=== PATIENT | female | born 1975 | race Caucasian/White ===

== ENCOUNTER 2017-04-24 15:32 | Inpatient (IN) | payer OTHER ==
[2017-04-24 16:34] LABS: Anisocytosis Slight; Basophils % (A) 0 %; Eosinophils # (A) 0.1 k/uL (0-0.7); Eosinophils % (A) 1 %; HCT 23.7 % (34.0-46.0); Hypochromasia Marked; Lymphocytes # (A) 2.1 k/uL (1.0-4.8); Lymphocytes % (A) 28 %; MCH 16.4 pg (25.0-35.0); MCV 65.7 fL (80.0-100.0); Mean Platelet Volume 6.9; Microcytosis Marked; Monocytes # (A) 0.5 k/uL (0-1.0); Monocytes % (A) 6 %; Neutrophils # (A) 4.6 k/uL (1.3-7.7); Neutrophils % (A) 62 %; Platelet Count 568 k/uL (150-450); Poikilocytosis Slight; RBC 3.61 m/uL (3.80-5.40); RDW 18.4 % (11.5-15.5); WBC 7.5 k/uL (3.8-10.6)
[2017-04-24 16:39] LABS: HGB 5.9 gm/dL (11.4-16.0)
[2017-04-24 16:41] LABS: ALT 20 U/L (9-52); AST 18 U/L (14-36); Albumin 3.6 g/dL (3.5-5.0); Alkaline Phosphatase 92 U/L (38-126); Anion Gap 10 mmol/L; Blood Urea Nitrogen 14 mg/dL (7-17); Calcium 9.2 mg/dL (8.4-10.2); Carbon Dioxide 28 mmol/L (22-30); Chloride 99 mmol/L (98-107); Glucose 92 mg/dL (74-99); Potassium 4.1 mmol/L (3.5-5.1); Sodium 137 mmol/L (137-145); Total Bilirubin <0.1 mg/dL (0.2-1.3); Total Protein 6.4 g/dL (6.3-8.2)
[2017-04-24 16:50] LABS: Ovalocytes Present; Polychromasia Present; Stomatocytes Present
--- NOTE | 2017-04-24 16:52 | ED ---
Extremity Problem HPI - General Chief complaint: Extremity Problem,Nontraumatic Stated complaint: Ankle/foot swelling Time Seen by Provider: 04/24/17 15:37 Source: patient Mode of arrival: ambulatory Limitations: physical limitation - History of Present Illness Initial comments: 41-year-old female patient presents to the emergency department today for evaluation of swelling to her ankles and feet. Patient states that swelling started a couple of days ago. She states that this seems to be worsening as the days go on. States she has tried soaking in absent salts and keeping them elevated but they don't seem to be improving at all. She states it feel tight. She denies any actual pain, redness, fevers, or chills. Denies any calf pain. She states that she has not had any follow-up with a primary care physician for the last 7 years. States that she frequently gets headaches, feels fatigued, does not sleep at night. She denies any dyspnea with lying flat or with physical activity. She denies any cough or congestion. Denies any recent travel. Patient denies any recent rash, chest pain, abdominal pain, nausea, vomiting, diarrhea, constipation, back pain, numbness, tingling, dizziness, weakness, hematuria, dysuria, urinary urgency, urinary frequency, headache, visual changes, or any other complaints. - Related Data Home Medications Medication Instructions Recorded Confirmed Fluticasone Nasal [place] [Flonase 1 spray EA NOSTRIL DAILY 04/24/17 04/24/17 Nasal [place]] Ibuprofen [Motrin Ib] 800 mg PO Q4H PRN 04/24/17 04/24/17 Sodium Chloride [Saline Nasal 1 spray EA NOSTRIL QID PRN 04/24/17 04/24/17 [place]] Allergies Allergy/AdvReac Type Severity Reaction Status Date / Time No Known Allergies Allergy Verified 04/24/17 16:17 Review of Systems ROS Statement: Those systems with pertinent positive or pertinent negative responses have been documented in the HPI. ROS Other: All systems not noted in ROS Statement are negative. Past Medical History Past Medical History: No Reported History History of Any Multi-Drug Resistant Organisms: None Reported Past Surgical History: Section Additional Past Surgical History / Comment(s): HEMROIDECTOMY Past Psychological History: No Psychological Hx Reported Smoking Status: Current every day smoker Past Alcohol Use History: None Reported Past Drug Use History: None Reported General Exam Limitations: physical limitation General appearance: alert, in no apparent distress, other (Is a well-developed, well-nourished adult female patient in no acute distress. Vital signs upon presentation are temperature 98.7F, pulse 120, respirations 18, blood pressure 177/95, pulse ox 100% on room air.) Eye exam: Present: normal appearance, PERRL, EOMI, other (Pale conjunctiva). Absent: scleral icterus, conjunctival injection, periorbital swelling ENT exam: Present: normal exam, normal oropharynx, mucous membranes moist, TM's normal bilaterally Neck exam: Present: normal inspection. Absent: tenderness, meningismus, lymphadenopathy Respiratory exam: Present: normal lung sounds bilaterally. Absent: respiratory distress, wheezes, rales, rhonchi, stridor Cardiovascular Exam: Present: normal rhythm, tachycardia, normal heart sounds. Absent: systolic murmur, diastolic murmur, rubs, gallop, clicks GI/Abdominal exam: Present: soft, normal bowel sounds. Absent: distended, tenderness, guarding, rebound, rigid Neurological exam: Present: alert, oriented X3, CN II-XII intact Psychiatric exam: Present: normal affect, normal mood Skin exam: Present: warm, dry, intact, normal color. Absent: rash Course Vital Signs 04/24/17 04/24/17 04/24/17 15:39 16:16 17:18 Temperature 98.7 F 98.9 F Pulse Rate 120 H 111 H Respiratory 18 18 18 Rate Blood Pressure 177/95 162/87 O2 Sat by Pulse 100 98 Oximetry 04/24/17 04/24/17 04/24/17 19:46 20:00 20:10 Temperature 98.4 F 98.8 F 98.5 F Pulse Rate 114 H 106 H 100 Respiratory 20 18 20 Rate Blood Pressure 177/100 156/103 171/104 O2 Sat by Pulse 99 99 100 Oximetry 04/24/17 04/24/17 04/24/17 20:40 21:20 21:22 Temperature 98.6 F 98.7 F 98.5 F Pulse Rate 114 H 107 H 106 H Respiratory 20 20 18 Rate Blood Pressure 166/106 160/102 158/100 O2 Sat by Pulse 99 98 99 Oximetry - Reevaluation(s) Reevaluation #1: 04/24/17 16:51 Patient's hemoglobin did come back at 5.9. Upon further questioning patient reports having prolonged frequent periods for the last several years. Patient states she does not follow with a machine preservative filler or primary care physician at this time and has not for the last 7 years. She is with one twin gestation. Both deliveries were via caesarean section. She has no history of abnormal pap, but again has not had any routine care in 7 years. She does report feeling fatigued constantly. We will repeat the CBC to confirm number. 04/24/17 18:04 Medical Decision Making - Medical Decision Making 41-year-old male patient presented to the emergency department today for complaints of foot and ankle swelling 4 days. Physical examination did reveal 2+ pitting edema to the bilateral lower extremities. We did perform labs which showed patient had a hemoglobin of 5.9 with did repeat this and got a level of 5.7. Platelet count was 585. After further questioning patient did report having heavy vaginal bleeding for the last several years along with prolonged menstrual cycles. HCG is negative. Urinalysis is negative. BNP was 354. Patient has been hypertensive while here in the department. We did transfuse patient with 1 unit of packed red blood cells. Dr. Lyons TAPE CUTTING MACHINE OPERATOR did come down to evaluate the patient and did not find any vaginal bleeding presently. He will follow-up with the patient outpatient. We did admit to medicine Dr. Dalton with sound physician's is excepting. We will repeat CBCs and monitor patient. - Lab Data Result diagrams: 04/24/17 17:00 04/24/17 16:10 Lab Results 04/24/17 04/24/17 04/24/17 Range/Units 16:10 16:10 16:10 WBC 7.5 (3.8-10.6) k/uL RBC 3.61 L (3.80-5.40) m/uL Hgb 5.9 L* (11.4-16.0) gm/dL Hct 23.7 L (34.0-46.0) % MCV 65.7 L (80.0-100.0) fL MCH 16.4 L (25.0-35.0) pg MCHC 25.0 L (31.0-37.0) g/dL RDW 18.4 H (11.5-15.5) % Plt Count 568 H (150-450) k/uL Neutrophils % 62 % Lymphocytes % 28 % Monocytes % 6 % Eosinophils % 1 % Basophils % 0 % Neutrophils # 4.6 (1.3-7.7) k/uL Lymphocytes # 2.1 (1.0-4.8) k/uL Monocytes # 0.5 (0-1.0) k/uL Eosinophils # 0.1 (0-0.7) k/uL Basophils # 0.0 (0-0.2) k/uL Polychromasia Present Hypochromasia Marked Poikilocytosis Slight Anisocytosis Slight Microcytosis Marked Ovalocytes Present Stomatocytes Present PT (9.0-12.0) sec INR (<1.2) APTT (22.0-30.0) sec Sodium 137 (137-145) mmol/L Potassium 4.1 (3.5-5.1) mmol/L Chloride 99 (98-107) mmol/L Carbon Dioxide 28 (22-30) mmol/L Anion Gap 10 mmol/L BUN 14 (7-17) mg/dL Creatinine 0.50 L (0.52-1.04) mg/dL Est GFR (MDRD) Af Amer >60 (>60 ml/min/1.73 sqM) Est GFR (MDRD) Non-Af >60 (>60 ml/min/1.73 sqM) Glucose 92 (74-99) mg/dL Calcium 9.2 (8.4-10.2) mg/dL Total Bilirubin <0.1 L (0.2-1.3) mg/dL AST 18 (14-36) U/L ALT 20 (9-52) U/L Alkaline Phosphatase 92 (38-126) U/L NT-Pro-B Natriuret Pep 354 pg/mL Total Protein 6.4 (6.3-8.2) g/dL Albumin 3.6 (3.5-5.0) g/dL Urine Color Urine Appearance (Clear) Urine pH (5.0-8.0) Ur Specific [place] (1.001-1.035) Urine Protein (Negative) Urine Glucose (UA) (Negative) Urine Ketones (Negative) Urine Blood (Negative) Urine Nitrite (Negative) Urine Bilirubin (Negative) Urine Urobilinogen (<2.0) mg/dL Ur Leukocyte Esterase (Negative) Urine HCG, Qual (Not Detectd) Blood Type Blood Type Recheck Antibody Screen Crossmatch Spec Expiration Date 04/24/17 04/24/17 04/24/17 Range/Units 16:10 17:00 17:00 WBC 8.1 (3.8-10.6) k/uL RBC 3.40 L (3.80-5.40) m/uL Hgb 5.7 L* (11.4-16.0) gm/dL Hct 22.4 L (34.0-46.0) % MCV 65.8 L (80.0-100.0) fL MCH 16.7 L (25.0-35.0) pg MCHC 25.4 L (31.0-37.0) g/dL RDW 18.4 H (11.5-15.5) % Plt Count 585 H (150-450) k/uL Neutrophils % 61 % Lymphocytes % 28 % Monocytes % 6 % Eosinophils % 1 % Basophils % 1 % Neutrophils # 4.9 (1.3-7.7) k/uL Lymphocytes # 2.3 (1.0-4.8) k/uL Monocytes # 0.5 (0-1.0) k/uL Eosinophils # 0.1 (0-0.7) k/uL Basophils # 0.0 (0-0.2) k/uL Polychromasia Hypochromasia Marked Poikilocytosis Slight Anisocytosis Slight Microcytosis Marked Ovalocytes Stomatocytes PT 9.6 (9.0-12.0) sec INR 1.0 (<1.2) APTT 22.5 (22.0-30.0) sec Sodium (137-145) mmol/L Potassium (3.5-5.1) mmol/L Chloride (98-107) mmol/L Carbon Dioxide (22-30) mmol/L Anion Gap mmol/L BUN (7-17) mg/dL Creatinine (0.52-1.04) mg/dL Est GFR (MDRD) Af Amer (>60 ml/min/1.73 sqM) Est GFR (MDRD) Non-Af (>60 ml/min/1.73 sqM) Glucose (74-99) mg/dL Calcium (8.4-10.2) mg/dL Total Bilirubin (0.2-1.3) mg/dL AST (14-36) U/L ALT (9-52) U/L Alkaline Phosphatase (38-126) U/L NT-Pro-B Natriuret Pep pg/mL Total Protein (6.3-8.2) g/dL Albumin (3.5-5.0) g/dL Urine Color Urine Appearance (Clear) Urine pH (5.0-8.0) Ur Specific [place] (1.001-1.035) Urine Protein (Negative) Urine Glucose (UA) (Negative) Urine Ketones (Negative) Urine Blood (Negative) Urine Nitrite (Negative) Urine Bilirubin (Negative) Urine Urobilinogen (<2.0) mg/dL Ur Leukocyte Esterase (Negative) Urine HCG, Qual (Not Detectd) Blood Type O Positive Blood Type Recheck No Antibody Screen NEGATIVE Crossmatch See Detail Spec Expiration Date 04/27/2017 - 229904/24/17 04/24/17 Range/Units 18:30 18:30 WBC (3.8-10.6) k/uL RBC (3.80-5.40) m/uL Hgb (11.4-16.0) gm/dL Hct (34.0-46.0) % MCV (80.0-100.0) fL MCH (25.0-35.0) pg MCHC (31.0-37.0) g/dL RDW (11.5-15.5) % Plt Count (150-450) k/uL Neutrophils % % Lymphocytes % % Monocytes % % Eosinophils % % Basophils % % Neutrophils # (1.3-7.7) k/uL Lymphocytes # (1.0-4.8) k/uL Monocytes # (0-1.0) k/uL Eosinophils # (0-0.7) k/uL Basophils # (0-0.2) k/uL Polychromasia Hypochromasia Poikilocytosis Anisocytosis Microcytosis Ovalocytes Stomatocytes PT (9.0-12.0) sec INR (<1.2) APTT (22.0-30.0) sec Sodium (137-145) mmol/L Potassium (3.5-5.1) mmol/L Chloride (98-107) mmol/L Carbon Dioxide (22-30) mmol/L Anion Gap mmol/L BUN (7-17) mg/dL Creatinine (0.52-1.04) mg/dL Est GFR (MDRD) Af Amer (>60 ml/min/1.73 sqM) Est GFR (MDRD) Non-Af (>60 ml/min/1.73 sqM) Glucose (74-99) mg/dL Calcium (8.4-10.2) mg/dL Total Bilirubin (0.2-1.3) mg/dL AST (14-36) U/L ALT (9-52) U/L Alkaline Phosphatase (38-126) U/L NT-Pro-B Natriuret Pep pg/mL Total Protein (6.3-8.2) g/dL Albumin (3.5-5.0) g/dL Urine Color Yellow Urine Appearance Clear (Clear) Urine pH 6.0 (5.0-8.0) Ur Specific [place] 1.018 (1.001-1.035) Urine Protein Negative (Negative) Urine Glucose (UA) Negative (Negative) Urine Ketones Negative (Negative) Urine Blood Negative (Negative) Urine Nitrite Negative (Negative) Urine Bilirubin Negative (Negative) Urine Urobilinogen <2.0 (<2.0) mg/dL Ur Leukocyte Esterase Negative (Negative) Urine HCG, Qual Not Detected (Not Detectd) Blood Type Blood Type Recheck Antibody Screen Crossmatch Spec Expiration Date - EKG Data -: EKG Interpreted by [place] EKG Comments: EKG obtained at 1612 shows sinus tachycardia possible left atrial enlargement, incomplete right bundle branch block, possible anterior infarct. Ventricular rate is 109, W[place] interval 136, QRS duration 100, QT 362, QTc 487. - Radiology Data Radiology results: report reviewed, image reviewed Transvaginal ultrasound of the pelvis was obtained due to heavy menses. Impression by Dr. Woodward shows a 1.8 cm somewhat exophytic complex cyst on the uterine fundus of uncertain significance. Normal endometrium. No adnexal mass. No free fluid. No evidence of ovarian torsion. Disposition Clinical Impression: Anemia Disposition: ADMITTED IP TO THIS [facility] Condition: Serious Referrals: None,Stated [Primary Care Provider] - 1-2 days Decision to Admit Reason: Admit from EC Decision Date: 04/24/17 Decision Time: 21:24
[2017-04-24 17:26] LABS: Anisocytosis Slight; Basophils % (A) 1 %; Eosinophils # (A) 0.1 k/uL (0-0.7); Eosinophils % (A) 1 %; HCT 22.4 % (34.0-46.0); Hypochromasia Marked; Lymphocytes # (A) 2.3 k/uL (1.0-4.8); Lymphocytes % (A) 28 %; MCH 16.7 pg (25.0-35.0); MCHC 25.4 g/dL (31.0-37.0); MCV 65.8 fL (80.0-100.0); Mean Platelet Volume 6.6; Microcytosis Marked; Monocytes # (A) 0.5 k/uL (0-1.0); Monocytes % (A) 6 %; Neutrophils # (A) 4.9 k/uL (1.3-7.7); Neutrophils % (A) 61 %; Platelet Count 585 k/uL (150-450); Poikilocytosis Slight; RDW 18.4 % (11.5-15.5); WBC 8.1 k/uL (3.8-10.6)
[2017-04-24 17:31] LABS: HGB 5.7 gm/dL (11.4-16.0)
[2017-04-24 18:24] LABS: Partial Thromboplastin Time 22.5 sec (22.0-30.0); Prothrombin Time 9.6 sec (9.0-12.0)
[2017-04-24 18:43] LABS: Appearance,Urine Clear (Clear); Bilirubin,Urine Negative (Negative); Blood,Urine Negative (Negative); Color,Urine Yellow; Glucose,Urine (UA) Negative (Negative); Ketones,Urine Negative (Negative); Leukocyte Esterase,Urine Negative (Negative); Protein,Urine Negative (Negative); Specific Gravity,Urine 1.018 (1.001-1.035); Urobilinogen,Urine <2.0 mg/dL (<2.0)
--- NOTE | 2017-04-24 21:05 | US ---
EXAMINATION TYPE: US transvaginal DATE OF EXAM: 04/24/2017 COMPARISON: NONE CLINICAL HISTORY: Pain. Heavy menses TECHNIQUE: Transvaginal (TV). EXAM MEASUREMENTS: Uterus: 7.1 x 5.3 x 3.2 cm Right Ovary: 3.2 x 1.9 x 2.4 cm Left Ovary: 3.0 x 1.8 x 2.4 cm 1. Uterus: Anteverted Heterogenous with a hypoechoic area seen measuring 1.8 x 1.3 x 1.8cm. Naboth daysi cyst. 2. Endometrium: Boarders are ill defined. 3. Right Ovary: wnl 4. Left Ovary: wnl Spectral, color and waveform doppler imaging shows good arterial and venous flow within the ovaries ; there is no evidence for ovarian torsion. 5. Bilateral Adnexa: wnl 6. Posterior cul-de-sac: wnl Hypoechoic area seen in uterus measuring 1.8 x 1.3 x 1.8cm. IMPRESSION: There is a 1.8 cm somewhat exophytic complex cyst on the uterine fundus of uncertain sign ificance. Normal endometrium. No adnexal mass. No free fluid. No evidence of ovarian torsion.
[2017-04-24] MEDS ORDERED: NALOXONE 0.4 MG/ML 1 ML VIAL IV PRN (21:14)
--- NOTE | 2017-04-24 21:20 | P.OBCN ---
History of Present Illness Consult date: 04/24/17 Requesting physician: Jay Jones Reason for consult: menorrhagia Chief complaint: History of heavy vaginal bleeding History of present illness: Rocío is a 41-year-old who has for the past approximately 6 years had very heavy vaginal bleeding. She reports the bleeding began is extremely heavy shortly after having her twins which was approximately 6 years ago. At that same time she had a tubal ligation. She reports that she passes very large blood clots and the last 2-3 years has bled 12-14 days each cycle. She is not sought any medical care and has not seen a physician in more than 6 years. In the emergency room she is laying quietly in bed receiving a blood transfusion because her hemoglobin was 5.6. She and I had a lengthy discussion on need for further workup and evaluation and most likely needing some type of evaluation of the lining of her uterus. I did do a Pap smear and pelvic exam in the emergency room however. We'll plan to check FSH, LH, prolactin, and TSH with standard menorrhagia bloodwork. In discussing her symptoms with her she relates that there is been no other significant changes to her health and she takes no other medications. Her past medical history generally is unremarkable. Past surgical history she had to 2 sections as well as a neck surgery. ALLERGIES none. Social history assume for tobacco abuse Loprox one pack per day. She denies alcohol or illicit drug use at this time. Family history is noncontributory other than she states that all of the female members her family have had hysterectomies by age 40. On physical exam currently her vital signs show hypertension with blood pressure 171/104. She is receiving her unit of blood from the emergency room. She is however afebrile Heart essentially regular, lungs are clear. Abdomen is soft and nontender and no uterus is palpable above the pubic symphysis. Pelvic exam is completed and Pap smear was done. She has an anteverted anteflexed uterus no masses are noted in the adnexa and I believe I could feel one fibroid anteriorly on the uterus. Physically she appears older than her stated age and is underweight. Assessment history of menorrhagia/menometrorrhagia with no active bleeding tonight. Plan your medical management with expectation to see her in an outpatient setting for at the very least endometrial biopsy and to discuss some type of alternative means to control her bleeding i.e. Mirena IUD versus potentially D& C with hysteroscopy and NovaSure ablation versus more aggressive measures depending on how her symptoms progress. I did have a lengthy discussion with her that this is not safe to continue to have this heavy bleeding and that ultimately something would absolutely have to be done and she would need follow- up for this. She is again not actively bleeding and therefore no immediate treatments need to be offered. Past Medical History Past Medical History: No Reported History History of Any Multi-Drug Resistant Organisms: None Reported Past Surgical History: Section Additional Past Surgical History / Comment(s): HEMROIDECTOMY Past Psychological History: No Psychological Hx Reported Smoking Status: Current every day smoker Past Alcohol Use History: None Reported Past Drug Use History: None Reported Medications and Allergies Home Medications Medication Instructions Recorded Confirmed Type Fluticasone Nasal [place] [Flonase 1 spray EA NOSTRIL DAILY 04/24/17 04/24/17 History Nasal [place]] Ibuprofen [Motrin Ib] 800 mg PO Q4H PRN 04/24/17 04/24/17 History Sodium Chloride [Saline Nasal 1 spray EA NOSTRIL QID PRN 04/24/17 04/24/17 History [place]] Allergies Allergy/AdvReac Type Severity Reaction Status Date / Time No Known Allergies Allergy Verified 04/24/17 16:17 Exam Osteopathic Statement: *. No significant issues noted on an osteopathic structural exam other than those noted in the History and Physical/Consult. - Vital Signs Vital signs: Vital Signs Temp Pulse Resp BP Pulse Ox 04/24/17 20:10 98.5 F 100 20 171/104 100 04/24/17 20:00 98.8 F 106 H 18 156/103 99 04/24/17 19:46 98.4 F 114 H 20 177/100 99 04/24/17 17:18 98.9 F 111 H 18 162/87 98 04/24/17 16:16 18 04/24/17 15:39 98.7 F 120 H 18 177/95 100 Intake and Output 04/24/17 04/24/17 04/24/17 06:59 14:59 22:59 Intake Total 0 Balance 0 Intake: Blood Product 0 Rc As-3 Unit 0 [id number] Other: Weight 58.06 kg Patient Weight 04/25/17 06:59 Weight 58.06 kg Results Result Diagrams: 04/24/17 17:00 04/24/17 16:10 Abnormal Lab Results - Last 24 Hours (Table) 04/24/17 04/24/17 04/24/17 Range/Units 16:10 16:10 17:00 RBC 3.61 L 3.40 L (3.80-5.40) m/uL Hgb 5.9 L* 5.7 L* (11.4-16.0) gm/dL Hct 23.7 L 22.4 L (34.0-46.0) % MCV 65.7 L 65.8 L (80.0-100.0) fL MCH 16.4 L 16.7 L (25.0-35.0) pg MCHC 25.0 L 25.4 L (31.0-37.0) g/dL RDW 18.4 H 18.4 H (11.5-15.5) % Plt Count 568 H 585 H (150-450) k/uL Creatinine 0.50 L (0.52-1.04) mg/dL Total Bilirubin <0.1 L (0.2-1.3) mg/dL Crossmatch 04/24/17 Range/Units 17:00 RBC (3.80-5.40) m/uL Hgb (11.4-16.0) gm/dL Hct (34.0-46.0) % MCV (80.0-100.0) fL MCH (25.0-35.0) pg MCHC (31.0-37.0) g/dL RDW (11.5-15.5) % Plt Count (150-450) k/uL Creatinine (0.52-1.04) mg/dL Total Bilirubin (0.2-1.3) mg/dL Crossmatch See Detail
[2017-04-24] MEDS: SODIUM CHLORIDE 0.9% 1,000 ML IV SCH (23:24)
[2017-04-25 01:02] LABS: Anisocytosis Slight; Basophils % (A) 0 %; Eosinophils # (A) 0.1 k/uL (0-0.7); Eosinophils % (A) 1 %; HCT 25.5 % (34.0-46.0); Hypochromasia Marked; Lymphocytes # (A) 1.7 k/uL (1.0-4.8); Lymphocytes % (A) 19 %; MCH 17.6 pg (25.0-35.0); MCHC 27.2 g/dL (31.0-37.0); MCV 64.8 fL (80.0-100.0); Mean Platelet Volume 6.6; Microcytosis Marked; Monocytes # (A) 0.6 k/uL (0-1.0); Monocytes % (A) 6 %; Neutrophils # (A) 6.7 k/uL (1.3-7.7); Neutrophils % (A) 72 %; Platelet Count 550 k/uL (150-450); Poikilocytosis Moderate; RBC 3.93 m/uL (3.80-5.40); RDW 19.8 % (11.5-15.5); WBC 9.3 k/uL (3.8-10.6)
[2017-04-25 01:11] LABS: HGB 6.9 gm/dL (11.4-16.0)
[2017-04-25 01:55] LABS: ALT 28 U/L (9-52); AST 22 U/L (14-36); Albumin 3.8 g/dL (3.5-5.0); Alkaline Phosphatase 89 U/L (38-126); Anion Gap 10 mmol/L; Blood Urea Nitrogen 13 mg/dL (7-17); Calcium 9.3 mg/dL (8.4-10.2); Carbon Dioxide 28 mmol/L (22-30); Chloride 98 mmol/L (98-107); Glucose 101 mg/dL (74-99); Potassium 4.2 mmol/L (3.5-5.1); Sodium 136 mmol/L (137-145); Total Bilirubin 0.4 mg/dL (0.2-1.3); Total Protein 6.7 g/dL (6.3-8.2)
--- NOTE | 2017-04-25 01:59 | P.HPIM ---
History of Present Illness H&P Date: 04/24/17 Chief Complaint: Bilateral leg swelling 41-year-old female with no significant past medical history patient does not have a PCP and does not take any medications at home. She presented to the hospital due to swelling of bilateral feet up to the legs of couple day duration. This has never happened before and started all of a sudden however she denies any rashes, injury, or any similar events in the past, patient denies any pain in her legs. Patient works in the [employer]. Denies any orthopnea , paroxysmal maternal dyspnea, exertional dyspnea,, chest pain, or trouble breathing. Patient denies any fevers or chills, nausea or vomiting, dizziness or lightheadedness, syncope or near syncope, tachycardia. Patient does indicate that she has heavy vaginal bleeding since the delivery of her son 6 years ago since then she had a very irregular heavy bleed lasting 12- 14 days at times. She reported some family history of uterine disorders. However patient currently laying comfortable in bed not in any acute distress very pleasant, she has received the event of blood in the ER and admitted for further management. Patient was also evaluated by gynecology in the ED, transvaginal ultrasound performed which was unremarkable. Further workup was suggested to be performed as an outpatient Review of Systems Constitutional: Patient denies fever, denies chills, denies night sweating, denies significant weight changes Eyes: Patient denies visual changes, denies eye pain ENT: Patient denies ear pain, denies rhinorrhea, denies sore throat Cardiovascular: Patient denies chest pain, denies exertional dyspnea, denies orthopnea, denies paroxysmal nocturnal dyspnea Respiratory:Patient denies cough, denies wheezing, denies shortness of breath Gastrointestinal: Patient denies diarrhea, denies constipation, denies nausea , denies vomiting, denies abdominal pain Genitourinary: Patient denies dysuria, denies hematuria, denies changes in urinary habits, denies genital lesions, patient admits to heavy vaginal bleeding as discussed in HPI Musculoskeletal: Patient denies muscle pain, denies joint pain Psychiatric: Patient denies changes in mood or memory, denies suicidal ideation, denies anxiety Endocrine: Patient denies heat intolerance, denies cold intolerance, denies excessive thirst, denies polyuria Neurological: Patient denies focal neurologic deficits, denies weakness, denies numbness, denies tingling Hem/Lymphatic: Patient denies bleeding tendency, denies bruising, denies swollen lymph glands Allergic/Immun: Patient denies recent allergic reactions Skin: Patient denies rashes, denies pruritis, denies ulcers Past Medical History Past Medical History: No Reported History Additional Past Medical History / Comment(s): Teeth removed in October 2016. Continues to have gum pain and abscesses. History of Any Multi-Drug Resistant Organisms: None Reported Past Surgical History: Section Additional Past Surgical History / Comment(s): HEMROIDECTOMY Past Anesthesia/Blood Transfusion Reactions: No Reported Reaction Smoking Status: Current every day smoker - Past Family History Mother Family Medical History: No Reported History (Patient did reports family history of menstrual issues and uterine problems) Medications and Allergies Home Medications Medication Instructions Recorded Confirmed Type Fluticasone Nasal [place] [Flonase 1 spray EA NOSTRIL DAILY 04/24/17 04/24/17 History Nasal [place]] Ibuprofen [Motrin Ib] 800 mg PO Q4H PRN 04/24/17 04/24/17 History Sodium Chloride [Saline Nasal 1 spray EA NOSTRIL QID PRN 04/24/17 04/24/17 History [place]] Allergies Allergy/AdvReac Type Severity Reaction Status Date / Time No Known Allergies Allergy Verified 04/24/17 16:17 Physical Exam Vitals: Vital Signs Temp Pulse Pulse Resp BP BP Pulse Ox 04/24/17 23:20 98.4 F 106 H 16 164/94 04/24/17 22:50 98.4 F 106 H 16 164/94 98 04/24/17 22:20 98.5 F 103 H 20 168/103 97 04/24/17 21:55 98.7 F 104 H 20 168/104 97 04/24/17 21:22 98.5 F 106 H 18 158/100 99 04/24/17 21:20 98.7 F 107 H 20 160/102 98 04/24/17 20:40 98.6 F 114 H 20 166/106 99 04/24/17 20:10 98.5 F 100 20 171/104 100 04/24/17 20:00 98.8 F 106 H 18 156/103 99 04/24/17 19:46 98.4 F 114 H 20 177/100 99 04/24/17 17:18 98.9 F 111 H 18 162/87 98 04/24/17 16:16 18 04/24/17 15:39 98.7 F 120 H 18 177/95 100 Intake and Output 04/24/17 04/24/17 04/25/17 14:59 22:59 06:59 Intake Total 200 310 Output Total 450 Balance -250 310 Intake: Oral 200 Blood Product 0 310 Rc As-3 Unit 0 310 [id number] Output: Urine 450 Other: Weight 58.06 kg Patient Weight 04/25/17 06:59 Weight 58.06 kg Constitutional: No acute distress, conversant, pleasant, patient looks older than stated age Eyes: Anicteric sclerae, moist conjunctiva, no lid-lag Pupils equal round reactive to light ENMT: NC/AT Oropharynx clear, no erythema, exudates, examination of the gums especially at the area of the right lower mandible there was no appreciated redness or swelling over the gums but there is a protrusion of dental piece through the gum. Neck: Supple, FROM, no masses, or JVD No carotid bruits No thyromegaly Lungs: Clear to auscultation Clear to percussion Normal respiratory effort, no accessory muscle use Cardiovascular: Heart regular in rate and rhythm, Systolic murmurs, no gallops, or rubs +2 peripheral edema bilaterally pitting Abdominal: Soft Nontender, no guarding, rebound or rigidity Abdomen moving with respiration Normoactive bowel sounds No hepatomegaly, No splenomegaly No palpable mass No abdominal wall hernia noted Skin: Normal temperature, tone, texture, turgor No induration No subcutaneous nodules No rash, lesions No ulcers Extremities: No digital cyanosis No clubbing Pedal pulses intact and symmetrical Radial pulses intact and symmetrical No calf tenderness Psychiatric: Alert and oriented to person, place and time Appropriate affect fair judgment Neuro Muscles Strength 5/5 in all 4 extremities Sensation to light touch grossly present throughout Cranial nerves II-XII grossly intact No focal sensory deficits Lymphatics: no palpable cervical or supraclavicular , or inguinal lymph nodes Results CBC & Chem 7: 04/25/17 00:40 04/24/17 16:10 Labs: Abnormal Lab Results - Last 24 Hours (Table) 04/24/17 04/24/17 04/24/17 Range/Units 16:10 16:10 17:00 RBC 3.61 L 3.40 L (3.80-5.40) m/uL Hgb 5.9 L* 5.7 L* (11.4-16.0) gm/dL Hct 23.7 L 22.4 L (34.0-46.0) % MCV 65.7 L 65.8 L (80.0-100.0) fL MCH 16.4 L 16.7 L (25.0-35.0) pg MCHC 25.0 L 25.4 L (31.0-37.0) g/dL RDW 18.4 H 18.4 H (11.5-15.5) % Plt Count 568 H 585 H (150-450) k/uL Creatinine 0.50 L (0.52-1.04) mg/dL Total Bilirubin <0.1 L (0.2-1.3) mg/dL Crossmatch 04/24/17 Range/Units 17:00 RBC (3.80-5.40) m/uL Hgb (11.4-16.0) gm/dL Hct (34.0-46.0) % MCV (80.0-100.0) fL MCH (25.0-35.0) pg MCHC (31.0-37.0) g/dL RDW (11.5-15.5) % Plt Count (150-450) k/uL Creatinine (0.52-1.04) mg/dL Total Bilirubin (0.2-1.3) mg/dL Crossmatch See Detail Thrombosis Risk Factor Assmnt - Choose All That Apply Any of the Below Risk Factors Present?: No Other Risk Factors: No Other congenital or acquired thrombophilia - If yes, enter type in comment: No Thrombosis Risk Factor Assessment Level: Very Low Risk Assessment and Plan (1) Menorrhagia Narrative/Plan: Gynecology input noted Recommendations for outpatient follow-up Transvaginal ultrasound was unremarkable Pap smear was taken Current Visit: Yes Status: Acute Code(s): N92.0 - EXCESSIVE AND FREQUENT MENSTRUATION WITH REGULAR CYCLE SNOMED Code(s): 656296329 (2) Anemia Narrative/Plan: Most likely of iron deficiency anemia secondary to heavy menstrual bleeding for long duration Check iron studies ferritin level on prior to transfusion blood level Start iron by mouth empirically Patient is status post some blood transfusion in the ED her hemoglobin has responded appropriately so far Current Visit: Yes Status: Acute Code(s): D64.9 - ANEMIA, UNSPECIFIED SNOMED Code(s): 909511434 (3) Hypertension Narrative/Plan: This is possibly new diagnosis of hypertension with persistent readings of systolic blood pressures in the 160s Start patient on lisinopril in combination with hydrochlorothiazide, I would not start her on amlodipine due to known side effect of leg edema in a patient for the present with leg edema bilaterally Current Visit: Yes Status: Acute Code(s): I10 - ESSENTIAL (PRIMARY) HYPERTENSION SNOMED Code(s): 34325819 (4) Poor dental hygiene Narrative/Plan: Deferred to outpatient follow-up with dentist There is no evidence of acute abscess at this time Pain control with Motrin Current Visit: Yes Status: Acute Code(s): Z91.89 - OTH PERSONAL RISK FACTORS , NOT ELSEWHERE CLASSIFIED SNOMED Code(s): 878500545 (5) DVT prophylaxis Narrative/Plan: We'll avoid pharmacologic anticoagulation due to active vaginal bleeding Rely on SCDs Current Visit: Yes Status: Acute Code(s): QCI6990 - SNOMED Code(s): 700802849 (6) Bilateral leg edema Narrative/Plan: Unknown exact cause most likely due to the severe anemia Applied MAXIMILIAN hoses in the morning Hydrochlorothiazide was started for blood pressure which should help with swelling in the legs to Current Visit: Yes Status: Acute Code(s): R60.0 - LOCALIZED EDEMA SNOMED Code(s): 039638354 (7) Smoking Narrative/Plan: Counseled to quit smoking Nicotine replacement therapy offered Current Visit: Yes Status: Acute Code(s): F17.200 - NICOTINE DEPENDENCE, UNSPECIFIED, UNCOMPLICATED SNOMED Code(s): 74440627 Plan: Surrogate decision-maker: Patient Javier CODE STATUS: Full code DVT prophylaxis: Mechanical Discussed with: Patient, ER, RN Anticipated discharge: [address]: Home A total of 50 minutes were spent on the care of this complex patient more than 50% of the time was spent in counseling and care coordination.
[2017-04-25] MEDS: IBUPROFEN 400 MG TAB PO PRN ×4 (02:26→20:04)
[2017-04-25] MEDS: FERROUS SULFATE 325 MG TAB PO SCH ×3 (07:39→18:28)
[2017-04-25] MEDS ORDERED: LISINOPRIL-HCTZ 10-12.5 MG 1 EACH TAB PO SCH (09:00)
[2017-04-25] MEDS: FAMOTIDINE 20 MG TAB PO SCH (09:14)
[2017-04-25] MEDS: DOCUSATE 100 MG CAP PO SCH (09:14)
[2017-04-25] MEDS: NICOTINE 21MG/24HR PATCH TRANSDERM SCH (09:15)
[2017-04-25 10:20] LABS: Anisocytosis Slight; HCT 28.2 % (34.0-46.0); HGB 7.3 gm/dL (11.4-16.0); Hypochromasia Marked; MCH 17.6 pg (25.0-35.0); MCHC 25.9 g/dL (31.0-37.0); MCV 68.1 fL (80.0-100.0); Mean Platelet Volume 6.1; Microcytosis Marked; Platelet Count 593 k/uL (150-450); Poikilocytosis Moderate; RBC 4.14 m/uL (3.80-5.40); RDW 19.2 % (11.5-15.5); WBC 9.9 k/uL (3.8-10.6)
[2017-04-25 10:43] LABS: Neutrophils # (M) 9.11 k/uL (1.3-7.7); Neutrophils % (M) 92 %; Nucleated Red Blood Cells 0 /100 WBC (0-0); Total Cells Counted 100
[2017-04-25 10:44] LABS: Mixed Population RBC Present; Spherocytes Present
[2017-04-25 10:45] LABS: Target Cells Present
[2017-04-25 10:55] LABS: Iron Saturation 1.19 (12.00-45.00)
[2017-04-25] MEDS: CHLORTHALIDONE 25 MG TAB PO SCH (11:12)
--- NOTE | 2017-04-25 12:04 | P.PN ---
Subjective Progress Note Date: 04/25/17 Principal diagnosis: The patient is a 41-year-old female with a history of severe vaginal bleeding due to menorrhagia presents with a profound symptomatic anemia with a hemoglobin of 5.9 she was typed and transfused 1 unit of packed RBCs bringing up hemoglobin up to 6.9. Patient continues to feel weak, she was seen by SEISMOGRAPH SUPERVISOR Dr Lyons who ordered a transvaginal ultrasound that showed hypoechoic area measuring 1.81.31.8 with no further acute intervention needed as a patient had recently stopped her menses 2 days ago. Options for all outpatient patient workup was discussed by Dr. Lyons which included at least endometrial biopsy and to discuss some type of alternative means to control her bleeding i.e. Mirena IUD versus potentially D&C with hysteroscopy and NovaSure ablation versus more aggressive measures depending on how her symptoms progress. Patient still feeling fatigued, reports of elevated blood pressure this morning and overnight with no prior history of hypertension patient reports that she has not seen a physician in the last 6-7 years. Objective - Vital Signs Vital signs: Vital Signs Temp 99.7 F H 04/25/17 11:49 Pulse 105 H 04/25/17 11:49 Resp 16 04/25/17 11:49 BP 149/89 04/25/17 11:49 Pulse Ox 97 04/25/17 08:00 Intake & Output 04/24/17 04/25/17 04/25/17 18:59 06:59 18:59 Intake Total 510 0 Output Total 850 Balance -340 0 Weight 58.06 kg 58.06 kg Intake: Oral 200 Blood Product 310 0 Rc As-3 Unit 0 [id number] Rc As-3 Unit 310 [id number] Output: Urine 850 Other: Voiding Method Toilet # Voids 1 1 - Exam Constitutional: No acute distress, conversant, pleasant Eyes: Anicteric sclerae, moist conjunctiva, no lid-lag, PERRLA ENMT: NC/AT,Oropharynx clear, no erythema, exudates Neck:Supple, FROM, no masses, or JVD, No carotid bruits; No thyromegaly Lungs: Clear to auscultation, Clear to percussion, Normal respiratory effort, no accessory muscle use Cardiovascular: Heart regular in rate and rhythm, No murmurs, gallops, or rubs no peripheral edema Abdominal: Soft Nontender, nom distended, no guarding, no rebound or rigidity, Normoactive bowel sounds No hepatomegaly, No splenomegaly, No palpable mass No abdominal wall hernia noted Skin: Normal temperature, tone, texture, turgor, No induration No subcutaneous nodules, No rash, lesions, No ulcers Extremities:No digital cyanosis No clubbing, Pedal pulses intact and symmetrical Radial pulses intact and symmetrical Normal gait and station, No calf tenderness Psychiatric: Alert and oriented to person, place and time, Appropriate affect Intact judgement Neuro: Muscles Strength 5/5 in all 4 extremities, Sensation to light touch grossly present throughout, Cranial nerves II-XII grossly intact. No focal sensory deficits - Labs CBC & Chem 7: 04/25/17 10:00 04/25/17 00:40 Labs: Abnormal Lab Results - Last 24 Hours (Table) 04/24/17 04/24/17 04/24/17 Range/Units 16:10 16:10 17:00 RBC 3.61 L 3.40 L (3.80-5.40) m/uL Hgb 5.9 L* 5.7 L* (11.4-16.0) gm/dL Hct 23.7 L 22.4 L (34.0-46.0) % MCV 65.7 L 65.8 L (80.0-100.0) fL MCH 16.4 L 16.7 L (25.0-35.0) pg MCHC 25.0 L 25.4 L (31.0-37.0) g/dL RDW 18.4 H 18.4 H (11.5-15.5) % Plt Count 568 H 585 H (150-450) k/uL Neutrophils # (Manual) (1.3-7.7) k/uL Lymphocytes # (Manual) (1.0-4.8) k/uL Sodium (137-145) mmol/L Creatinine 0.50 L (0.52-1.04) mg/dL Glucose (74-99) mg/dL Total Bilirubin <0.1 L (0.2-1.3) mg/dL Crossmatch 04/24/17 04/25/17 04/25/17 Range/Units 17:00 00:40 00:40 RBC (3.80-5.40) m/uL Hgb 6.9 L* (11.4-16.0) gm/dL Hct 25.5 L (34.0-46.0) % MCV 64.8 L (80.0-100.0) fL MCH 17.6 L (25.0-35.0) pg MCHC 27.2 L (31.0-37.0) g/dL RDW 19.8 H (11.5-15.5) % Plt Count 550 H (150-450) k/uL Neutrophils # (Manual) (1.3-7.7) k/uL Lymphocytes # (Manual) (1.0-4.8) k/uL Sodium 136 L (137-145) mmol/L Creatinine 0.50 L (0.52-1.04) mg/dL Glucose 101 H (74-99) mg/dL Total Bilirubin (0.2-1.3) mg/dL Crossmatch See Detail 04/25/17 Range/Units 10:00 RBC (3.80-5.40) m/uL Hgb 7.3 L (11.4-16.0) gm/dL Hct 28.2 L (34.0-46.0) % MCV 68.1 L (80.0-100.0) fL MCH 17.6 L (25.0-35.0) pg MCHC 25.9 L (31.0-37.0) g/dL RDW 19.2 H (11.5-15.5) % Plt Count 593 H (150-450) k/uL Neutrophils # (Manual) 9.11 H (1.3-7.7) k/uL Lymphocytes # (Manual) 0.50 L (1.0-4.8) k/uL Sodium (137-145) mmol/L Creatinine (0.52-1.04) mg/dL Glucose (74-99) mg/dL Total Bilirubin (0.2-1.3) mg/dL Crossmatch Assessment and Plan (1) Acute blood loss anemia Narrative/Plan: * Acute on chronic blood loss anemia secondary to ongoing menorrhagia, patient seen by SEISMOGRAPH SUPERVISOR Dr. Lyons * Hemoglobin up to 6.9 we'll transfuse 1 more unit * Awaiting iron studies, continue with oral iron replacement Current Visit: Yes Status: Acute Code(s): D62 - ACUTE POSTHEMORRHAGIC ANEMIA SNOMED Code(s): 157249042 (2) Hypertension Narrative/Plan: * Blood pressure still elevated, we'll continue to monitor * Patient initiated on chlorthalidone 25 mg and will continue with lisinopril at 20 mg daily with hydralazine when necessary Current Visit: Yes Status: Acute Code(s): I10 - ESSENTIAL (PRIMARY) HYPERTENSION SNOMED Code(s): 93645371 (3) Bilateral leg edema Narrative/Plan: * BNP was 354, likely secondary to underlying venous insufficiency * Will likely improve with diuretics Current Visit: Yes Status: Acute Code(s): R60.0 - LOCALIZED EDEMA SNOMED Code(s): 600717971 (4) Menorrhagia Narrative/Plan: * Workup per GI and an Dr. Lyons * Transvaginal ultrasound showing hypoechoic 1.8 X 1.3X1.8 centimeter area Current Visit: Yes Status: Acute Code(s): N92.0 - EXCESSIVE AND FREQUENT MENSTRUATION WITH REGULAR CYCLE SNOMED Code(s): 656122682
[2017-04-25] MEDS ORDERED: LISINOPRIL 10 MG TAB PO STA (12:58)
[2017-04-25] MEDS: hydrALAZINE HCL 10 MG TAB PO PRN (14:43)
[2017-04-26] MEDS: FAMOTIDINE 20 MG TAB PO SCH ×3 (00:32→20:38)
[2017-04-26] MEDS: IBUPROFEN 400 MG TAB PO PRN ×2 (02:13→23:22)
[2017-04-26 06:51] LABS: Anisocytosis Moderate; Basophils # (A) 0.1 k/uL (0-0.2); Basophils % (A) 1 %; Eosinophils # (A) 0.1 k/uL (0-0.7); Eosinophils % (A) 1 %; HCT 35.8 % (34.0-46.0); Hypochromasia Marked; Lymphocytes # (A) 1.8 k/uL (1.0-4.8); Lymphocytes % (A) 18 %; MCH 19.1 pg (25.0-35.0); MCHC 27.2 g/dL (31.0-37.0); MCV 70.1 fL (80.0-100.0); Mean Platelet Volume 6.4; Microcytosis Marked; Monocytes # (A) 0.7 k/uL (0-1.0); Monocytes % (A) 7 %; Neutrophils # (A) 6.9 k/uL (1.3-7.7); Neutrophils % (A) 70 %; Platelet Count 603 k/uL (150-450); Poikilocytosis Marked; RBC 5.11 m/uL (3.80-5.40); RDW 20.7 % (11.5-15.5); WBC 9.9 k/uL (3.8-10.6)
[2017-04-26 07:08] LABS: HGB 9.8 gm/dL (11.4-16.0)
[2017-04-26 07:30] LABS: ALT 21 U/L (9-52); AST 22 U/L (14-36); Albumin 3.8 g/dL (3.5-5.0); Alkaline Phosphatase 108 U/L (38-126); Anion Gap 12 mmol/L; Blood Urea Nitrogen 14 mg/dL (7-17); Calcium 9.4 mg/dL (8.4-10.2); Carbon Dioxide 27 mmol/L (22-30); Chloride 101 mmol/L (98-107); Glucose 96 mg/dL (74-99); Potassium 4.2 mmol/L (3.5-5.1); Sodium 140 mmol/L (137-145); Total Bilirubin 0.3 mg/dL (0.2-1.3)
[2017-04-26] MEDS: DOCUSATE 100 MG CAP PO SCH (08:23)
[2017-04-26] MEDS: FERROUS SULFATE 325 MG TAB PO SCH ×3 (08:23→19:35)
[2017-04-26] MEDS: LISINOPRIL 20 MG TAB PO SCH (08:23)
[2017-04-26] MEDS: CHLORTHALIDONE 25 MG TAB PO SCH (08:23)
[2017-04-26] MEDS: NICOTINE 21MG/24HR PATCH TRANSDERM SCH (08:24)
[2017-04-26] MEDS: hydrALAZINE HCL 10 MG TAB PO PRN (08:56)
[2017-04-26] MEDS: METOPROLOL SUCCINATE (ER) 25 MG TAB.ER.24H PO SCH ×2 (12:27→12:45)
[2017-04-26] MEDS ORDERED: METOPROLOL TARTRATE 50 MG TAB PO STA (12:47)
[2017-04-26] MEDS ORDERED: amLODIPine 5 MG TAB PO STA (12:49)
--- NOTE | 2017-04-26 13:27 | P.PN ---
Subjective Progress Note Date: 04/26/17 Principal diagnosis: The patient is a 41-year-old female with a history of severe vaginal bleeding due to menorrhagia presents with a profound symptomatic anemia with a hemoglobin of 5.9 she was typed and transfused 1 unit of packed RBCs bringing up hemoglobin up to 6.9. Patient continues to feel weak, she was seen by ORDER PROCESSING SPECIALIST Dr Lyons who ordered a transvaginal ultrasound that showed hypoechoic area measuring 1.81.31.8 with no further acute intervention needed as a patient had recently stopped her menses 2 days ago. Options for all outpatient patient workup was discussed by Dr. Lyons which included at least endometrial biopsy and to discuss some type of alternative means to control her bleeding i.e. Mirena IUD versus potentially D&C with hysteroscopy and NovaSure ablation versus more aggressive measures depending on how her symptoms progress. reports of elevated blood pressure this morning but improved since yesterday, the patient continues to be tachycardic, patient has been afebrile and actually feels much better today Objective - Vital Signs Vital signs: Vital Signs Temp 98.4 F 04/26/17 11:52 Pulse 143 H 04/26/17 11:52 Resp 18 04/26/17 11:52 BP 160/95 04/26/17 11:52 Pulse Ox 96 04/26/17 11:52 Intake & Output 04/25/17 04/26/17 04/26/17 18:59 06:59 18:59 Intake Total 310 700 Output Total 300 Balance 10 700 Weight 60.9 kg 58.9 kg Intake: Oral 700 Blood Product 310 Rc As-3 Unit 310 [id number] Output: Urine 300 Other: Voiding Method Toilet Toilet # Voids 400 2 - Exam Constitutional: No acute distress, conversant, pleasant Eyes: Anicteric sclerae, moist conjunctiva, no lid-lag, PERRLA ENMT: NC/AT,Oropharynx clear, no erythema, exudates Neck:Supple, FROM, no masses, or JVD, No carotid bruits; No thyromegaly Lungs: Clear to auscultation, Clear to percussion, Normal respiratory effort, no accessory muscle use Cardiovascular: Heart regular in rate and rhythm, No murmurs, gallops, or rubs no peripheral edema Abdominal: Soft Nontender, nom distended, no guarding, no rebound or rigidity, Normoactive bowel sounds No hepatomegaly, No splenomegaly, No palpable mass No abdominal wall hernia noted Skin: Normal temperature, tone, texture, turgor, No induration No subcutaneous nodules, No rash, lesions, No ulcers Extremities:No digital cyanosis No clubbing, Pedal pulses intact and symmetrical Radial pulses intact and symmetrical Normal gait and station, No calf tenderness Psychiatric: Alert and oriented to person, place and time, Appropriate affect Intact judgement Neuro: Muscles Strength 5/5 in all 4 extremities, Sensation to light touch grossly present throughout, Cranial nerves II-XII grossly intact. No focal sensory deficits - Labs CBC & Chem 7: 04/26/17 06:04 04/26/17 06:04 Labs: Abnormal Lab Results - Last 24 Hours (Table) 04/24/17 04/25/17 04/26/17 Range/Units 17:00 06:00 06:04 Hgb (11.4-16.0) gm/dL MCV (80.0-100.0) fL MCH (25.0-35.0) pg MCHC (31.0-37.0) g/dL RDW (11.5-15.5) % Plt Count (150-450) k/uL Creatinine 0.51 L (0.52-1.04) mg/dL Iron 6 L (50-170) ug/dL TIBC 505 H (228-460) ug/dL Iron Saturation 1.19 L (12.00-45.00) Ferritin 2.3 L (10.0-291.0) ng/mL Crossmatch See Detail 04/26/17 Range/Units 06:04 Hgb 9.8 L D (11.4-16.0) gm/dL MCV 70.1 L (80.0-100.0) fL MCH 19.1 L (25.0-35.0) pg MCHC 27.2 L (31.0-37.0) g/dL RDW 20.7 H (11.5-15.5) % Plt Count 603 H (150-450) k/uL Creatinine (0.52-1.04) mg/dL Iron (50-170) ug/dL TIBC (228-460) ug/dL Iron Saturation (12.00-45.00) Ferritin (10.0-291.0) ng/mL Crossmatch Assessment and Plan (1) Acute blood loss anemia Narrative/Plan: * Acute on chronic blood loss anemia with iron deficiency anemia secondary to ongoing menorrhagia, patient seen by ORDER PROCESSING SPECIALIST Dr. Lyons * Hemoglobin up to 9.8 status post 2 units packed RBC transfusion * Continue oral iron supplementation Current Visit: Yes Status: Acute Code(s): D62 - ACUTE POSTHEMORRHAGIC ANEMIA SNOMED Code(s): 412455100 (2) Hypertension Narrative/Plan: * Blood pressure still elevated, we'll continue to monitor * Patient initiated on chlorthalidone 25 mg and will continue with lisinopril at 20 mg daily with hydralazine when necessary * Patient also continues to be tachycardic we'll consult cardiology for further recommendations she is initiated on Toprol-XL at at 25 mg and echocardiogram is pending Current Visit: Yes Status: Acute Code(s): I10 - ESSENTIAL (PRIMARY) HYPERTENSION SNOMED Code(s): 44307436 (3) Bilateral leg edema Narrative/Plan: * BNP was 354, likely secondary to underlying venous insufficiency * Will likely improve with diuretics Current Visit: Yes Status: Resolved Code(s): R60.0 - LOCALIZED EDEMA SNOMED Code(s): 578805576 (4) Menorrhagia Narrative/Plan: * Workup per GI and an Dr. Lyons * Transvaginal ultrasound showing hypoechoic 1.8 X 1.3X1.8 centimeter area Current Visit: Yes Status: Acute Code(s): N92.0 - EXCESSIVE AND FREQUENT MENSTRUATION WITH REGULAR CYCLE SNOMED Code(s): 464590316
--- NOTE | 2017-04-26 15:37 | CONS ---
CONSULTATION This is a 41-year-old lady who has been admitted to the hospital with low bilateral lower extremity edema, weakness, fatigue, lack of energy and excessive menstrual bleeding. She apparently has been having heavy menstrual bleeding for the past 2 weeks and her hemoglobin when she came in was less than 6.0. I was asked to see her mainly because of tachycardia and also a newly diagnosed hypertension. This lady did not see a physician for 7 years. She had a vaginal delivery 7 years ago. Since then, she has a she has had on and off irregular menstrual bleeding. Has not seen any primary care doctor or refining equipment operator in the interim. She denies any chest pain, but complains of fatigue and lack of energy. She also has shortness of breath with activity. She feels some time that her heart races fast. PAST MEDICAL HISTORY: 1. Remarkable for some dental issues. 2. She has no known diagnosis of hypertension, diabetes, myocardial infarction or CVA. 3. She does have excessive menstrual bleeding, irregular periods, and anemia as a result of this. 4. She is status post hemorrhoidectomy, details unclear. SOCIAL HISTORY: Patient smokes 1 to 1-1/2 pack daily. Does not consume alcohol or other recreational drugs. ALLERGIES: No known drug allergies. MEDICATIONS: She uses a Flonase spray. After arrival here to the hospital, her blood pressure was found to be elevated. She has been placed on multiple antihypertensive agents, but the pressures still seems to be suboptimally controlled. REVIEW OF SYSTEMS: Remarkable for exertional shortness of breath, fatigue and lack of energy, excessive menstrual bleeding, has no hematemesis or melena type issues. EXAMINATION: Blood pressure is 160/90, pulse rate is about 104 per minute, irregular. HEENT: Unremarkable. Fundus was not examined by me. NECK: Supple. There is no JVD. I do not hear a carotid bruit. Heart exam reveals S1, S2 heard normally with tachycardia, short systolic murmur, probably a 4 flow murmur. Lungs are clear. Abdomen is soft, nontender. Lower extremities reveal bilateral trace edema. Diminished pulses. Central nervous system grossly no focal deficits. EKG revealed sinus tachycardia, incomplete right bundle branch block pattern. LABORATORY DATA: Reveals an initial admitting hemoglobin of 5.7, after a couple of units of blood it is now 9.8. Renal function is normal. Thyroid function is normal. Her iron stores are low. TIBC is high and MCV is low. Clinical picture is that of anemia secondary to blood loss. IMPRESSION: 1. Anemia secondary to blood loss. 2. Tachycardia, probably secondary to anemia. 3. Hypertension, suboptimally controlled so far. 4. History of dysfunctional uterine bleeding with heavy bleeding that is going on for at least 2 weeks. 5. History of tobacco abuse. RECOMMENDATIONS: I am recommending that we switch her to metoprolol tartrate which is shorter acting and give it at a dose of 50 mg b.i.d. I will also suggest that we discontinue oral hydralazine of 10 mg as ordered and switch to amlodipine 5 mg b.i.d. We will also discontinue the diuretic [place] mainly because the patient is already anemic and diuretic may not be the best approach at this time. I will also recommend that we perform a full echocardiogram and then based on this, I will make further recommendations. I have discussed my thoughts in detail with the patient. Thank you very much for the consult. NGHIA / YARELYN: [id number] /
[2017-04-26] MEDS: amLODIPine 5 MG TAB PO SCH (19:42)
[2017-04-26] MEDS: SODIUM CHLORIDE 0.9% 1,000 ML IV SCH (19:44)
[2017-04-26] MEDS: METOPROLOL TARTRATE 50 MG TAB PO SCH (20:38)
[2017-04-27] MEDS: DOCUSATE 100 MG CAP PO SCH (07:54)
[2017-04-27] MEDS: METOPROLOL TARTRATE 50 MG TAB PO SCH (07:54)
[2017-04-27] MEDS: amLODIPine 5 MG TAB PO SCH (07:54)
[2017-04-27] MEDS: LISINOPRIL 20 MG TAB PO SCH (07:54)
[2017-04-27] MEDS: FERROUS SULFATE 325 MG TAB PO SCH ×2 (07:55→13:42)
[2017-04-27 07:56] VITALS: RESP 16
[2017-04-27] MEDS: IBUPROFEN 400 MG TAB PO PRN (07:57)
[2017-04-27 08:25] VITALS: TEMP 98.1
[2017-04-27] MEDS: FAMOTIDINE 20 MG TAB PO SCH (09:00)
[2017-04-27 09:50] VITALS: BP 132/88; PULSE 93
--- NOTE | 2017-04-27 10:32 | ECHOF ---
Referral Reason:HTN/Tachycardia MEASUREMENTS -------- HEIGHT: 170.2 cm WEIGHT: 58.5 kg BP: 171/109 RVIDd: 2.6 cm (< 3.3) IVSd: 1.3 cm (0.6 - 1.1) LVIDd: 4.8 cm (3.9 - 5.3) LVPWd: 1.2 cm (0.6 - 1.1) IVSs: 1.6 cm LVIDs: 3.7 cm LVPWs: 1.7 cm LAESV Index (A-L): 18.78 ml/m Ao Diam: 3.3 cm (2.0 - 3.7) AV Cusp: 2.2 cm (1.5 - 2.6) LA Diam: 2.8 cm (2.7 - 3.8) EPSS: 0.8 cm MV E Feliberto: 1.18 m/s MV DecT: 143 ms MV A Feliberto: 0.67 m/s MV E/A Ratio: 1.76 RAP: 5.00 mmHg RVSP: 31.54 mmHg MV EF SLOPE: 271.43 mm/s (70 - 150) MV EXCURSION: 2.08 cm (> 18.000) FINDINGS -------- Sinus rhythm. This was a technically good study. The left ventricular size is normal. There is mild concentric left ventricular hypertrophy. There is moderate global hypokinesis of LV . Overall left ventricular systolic function is moderately im paired with, an EF between 35 - 40 %. Mitral Doppler inflow pattern suggests diastolic filling abno rmality 20.90. The right ventricle is normal in size and function. Normal LA size by volume 22+/-6 ml/m2. The right atrium is normal in size. Aortic valve is trileaflet and is mildly thickened. Trace amount of aortic regurgitation. There is no evidence of aortic stenosis. The mitral valve leaflets are mildly thickened. There is trace mitral regurgitation. Trace tricuspid regurgitation present. Right ventricular systolic pressure is normal at < 35 mmHg. There is no evidence of pulmonary hypertension. The pulmonic valve is normal. The aortic root size is normal. Normal inferior vena cava with normal inspiratory collapse consistent with estimated right atrial pre ssure of 5 mmHg. There is a moderate pericardial effusion is located near the right ventricle. CONCLUSIONS -------- 1. Sinus rhythm. 2. This was a technically good study. 3. The left ventricular size is normal. 4. There is mild concentric left ventricular hypertrophy. 5. There is moderate global hypokinesis of LV . 6. Overall left ventricular systolic function is moderately impaired with, an EF between 35 - 40 %. 7. Mitral Doppler inflow pattern suggest diastolic filling abnormality 20.90. 8. Normal LA size by volume 22+/-6 ml/m2. 9. Aortic valve is trileaflet and is mildly thickened. 10. Trace amount of aortic regurgitation. 11. The mitral valve leaflets are mildly thickened. 12. There is trace mitral regurgitation. 13. Trace tricuspid regurgitation present. 14. Right ventricular systolic pressure is normal at < 35 mmHg. 15. There is no evidence of pulmonary hypertension. 16. The aortic root size is normal. 17. There is a moderate pericardial effusion is located near the right ventricle. COMPUTER SUPPORT TECHNICIAN: Chevy Collier RDCS
--- NOTE | 2017-04-27 12:13 | P.DS ---
Providers Date of admission: 04/24/17 21:24 Attending physician: Dawit Lomax MD Consults: 04/26/17 12:00 Consult Physician Routine Consulting Provider: Ganga Abdul Consult Reason/Comments: tachycardia Do you want consulting provider notified?: Yes Primary care physician: Stated None - Discharge Diagnosis(es) (1) Acute blood loss anemia Current Visit: Yes Status: Acute (2) Hypertension Current Visit: Yes Status: Acute (3) Bilateral leg edema Current Visit: Yes Status: Resolved (4) Menorrhagia Current Visit: Yes Status: Acute (5) Iron deficiency anemia due to chronic blood loss Current Visit: Yes Status: Acute (6) Cardiomyopathy Current Visit: Yes Status: Acute (7) Systolic CHF Current Visit: Yes Status: Acute Hospital Course: 41-year-old female with a history of severe vaginal bleeding due to menorrhagia presents with a profound symptomatic anemia with a hemoglobin of 5.9 she was typed and transfused 2 unit of packed RBCs bringing up hemoglobin up to 9.8. She was seen by [employer] Dr Lyons who ordered a transvaginal ultrasound that showed hypoechoic area measuring 1.81.31.8 with no further acute intervention needed as a patient had recently stopped her menses 2 days ago. Options for all outpatient patient workup was discussed by Dr. Lyons which included at least endometrial biopsy and to discuss some type of alternative means to control her bleeding i.e. Mirena IUD versus potentially D&C with hysteroscopy and NovaSure ablation versus more aggressive measures depending on how her symptoms progress. The patient had ongoing elevation of her blood pressures and was diagnosed with hypertension during this visit and she was started on an antihypertensive regimen and later optimized to include Norvasc 5 mg by mouth twice a day, metoprolol 75 mg by mouth twice a day, lisinopril 20 mg by mouth daily. The patient was seen by cardiology due to ongoing tachycardia which they attributed to her ongoing anemia. 2-D echocardiogram showed an ejection fraction of 35-40% suggesting some systolic CHF with cardiomyopathy. Follow-up appointments with Dr. Torres and Dr. Lyons were made and the patient was given [facility] for [facility] establish a PCP there. She was subsequently discharged home in stable condition. This discharge process took approximately 35 minutes Patient Condition at Discharge: Serious Plan - Discharge Summary New Discharge Prescriptions: New RX: amLODIPine [Norvasc] 5 mg PO BID #60 tab RX: Ferrous Sulfate [Iron (65 MG Elemental)] 325 mg PO TID-W/MEALS #90 tab RX: Lisinopril [Zestril] 20 mg PO DAILY #30 tab RX: Metoprolol Tartrate [Lopressor] 75 mg PO BID #60 tab Continue RX: Fluticasone Nasal [place] [Flonase Nasal [place]] 1 spray EA NOSTRIL DAILY RX: Sodium Chloride [Saline Nasal [place]] 1 spray EA NOSTRIL QID PRN PRN Reason: DRYNESS RX: Ibuprofen [Motrin Ib] 800 mg PO Q4H PRN PRN Reason: Pain Discharge Medication List RX: Fluticasone Nasal [place] [Flonase Nasal [place]] 1 spray EA NOSTRIL DAILY 04/24 [History] RX: Ibuprofen [Motrin Ib] 800 mg PO Q4H PRN 04/24/17 [History] RX: Sodium Chloride [Saline Nasal [place]] 1 spray EA NOSTRIL QID PRN 04/24/17 [ History] RX: Ferrous Sulfate [Iron (65 MG Elemental)] 325 mg PO TID-W/MEALS #90 tab 04/27 [Rx] RX: Lisinopril [Zestril] 20 mg PO DAILY #30 tab 04/27/17 [Rx] RX: Metoprolol Tartrate [Lopressor] 75 mg PO BID #60 tab 04/27/17 [Rx] RX: amLODIPine [Norvasc] 5 mg PO BID #60 tab 04/27/17 [Rx] Follow up Appointment(s)/Referral(s): None,Stated [Primary Care Provider] - 1-2 days Activity/Diet/Wound Care/Special Instructions: [facility]: #[phone], please call Sunday at DR Ubaldo TORRES[facility] OFFICE ([facility] ) TO CALL PT AT HOME WITH APPT IN 2 WEEKS. LOW SODIUM DIET Discharge Disposition: HOME SELF-CARE
[2017-04-27] MEDS: NICOTINE 21MG/24HR PATCH TRANSDERM SCH (13:02)
--- NOTE | 2017-04-27 14:34 | CONS ---
CONSULTATION Mrs. Gupta looks and feels better today. Her echo revealed ejection fraction of 40%, global decrease in contractility, moderate pericardial effusion. She is hemodynamically stable. Blood pressure control is much better. Heart rate is also improved. Blood pressure today is 140/78, pulse rate is about 94 per minute. S1-S2 heard normally. Lungs are clear. Abdomen is soft. Rest of physical examination is unchanged. Clinical picture suggests that we may be dealing with a myopericarditis type picture with the LV dysfunction and pericardial effusion. However, no intervention is necessary at this time. We will optimize blood pressure control and she can be discharged. I will see her in the office in 2 weeks. Advised not to consume alcohol which she say she does not. I also counseled regarding the need to quit smoking. We will increase beta daija to 75 mg daily, increase activity and she can be discharged with the understanding I will see her in 2 weeks and we may be dealing with a myopericarditis. She will need followup echocardiogram and further evaluation. Discussed my thoughts in detail with the patient. MMDARIENL / IJN: [id number] /
[2017-04-27] MEDS ORDERED: METOPROLOL TARTRATE 25 MG TAB PO SCH (21:00)
== END 2017-04-27 14:13 | disposition home or self-care (01) | DRG 760 ==
LOC: EC 15:32 → 6PED 21:24
PROVIDERS: ADMIT Internal Medicine; ATTEND Internal Medicine
PROC: 30233N1 Transfusion of Nonautologous Red Blood Cells into Peripheral Vein, Percutaneous Approach (ICD-10-PCS; principal; 2017-04-24)
DX: N92.0 Excessive and frequent menstruation with regular cycle (principal); D62 Acute posthemorrhagic anemia; I31.3 Pericardial effusion (noninflammatory); I31.9 Disease of pericardium, unspecified; I11.0 Hypertensive heart disease with heart failure; I50.20 Unspecified systolic (congestive) heart failure; I42.9 Cardiomyopathy, unspecified; F17.200 Nicotine dependence, unspecified, uncomplicated; Z71.6 Tobacco abuse counseling; Z79.899 Other long term (current) drug therapy; I87.2 Venous insufficiency (chronic) (peripheral); R63.6 Underweight; Z68.20 Body mass index [BMI] 20.0-20.9, adult; R00.0 Tachycardia, unspecified; K08.9 Disorder of teeth and supporting structures, unspecified
CPT/HCPCS: 36415; 76830; 80053; 81003; 81025; 82728; 83001; 83002; 83540; 83550; 83880; 84146; 84443; 85025; 85610; 85730; 86850; 86900; 86901; 86920; 93005; 93306; 93975; 99285

== ENCOUNTER 2017-06-29 10:44 | Day surgery (SDC) | payer OTHER ==
[2017-06-28 10:35] VITALS: BMI 21.6
--- NOTE | 2017-06-28 16:38 | P.HPOB ---
History of Present Illness H&P Date: 06/28/17 Chief Complaint: menorrhagia Rocío is a 42-year-old female with heavy vaginal bleeding. The heavy bleeding is been going on ever since she had her twins approximately 6 years ago symptoms however have worsened over the last year. In discussing treatments we did discuss IUD versus D&C NovaSure versus hormonal management. She relates that she cannot take control pills and it due to the fact that she is having heavy bleeding 3 times a month and her hemoglobin has precipitously dropped she would prefer some type of treatment with surgery. She is therefore scheduled for D&C with hysteroscopy and NovaSure. Risks/benefits/alternatives to this were discussed with patient in detail including but not limited to bleeding and infection as well as possible perforation or thermal injury and pain. Past Medical History Past Medical History: GERD/Reflux Additional Past Medical History / Comment(s): heavy and lengthy menstrual cycles ,hospital stay Mar 2017 for elevated b/p and davina feet and leg edema-currently no tx-monitoring b/p at home,Teeth removed in October 2016, Continues to have gum pain intermittently,vericose veins,constipation History of Any Multi-Drug Resistant Organisms: None Reported Past Surgical History: Section Additional Past Surgical History / Comment(s): HEMROIDECTOMY,neck fusion Past Anesthesia/Blood Transfusion Reactions: No Reported Reaction Smoking Status: Current every day smoker - Past Family History Mother Family Medical History: No Reported History Medications and Allergies Home Medications Medication Instructions Recorded Confirmed Type Ibuprofen [Motrin Ib] 200 mg PO Q4H PRN 04/24/17 06/28/17 History Allergies Allergy/AdvReac Type Severity Reaction Status Date / Time No Known Allergies Allergy Verified 06/28/17 10:27 Exam Osteopathic Statement: *. No significant issues noted on an osteopathic structural exam other than those noted in the History and Physical/Consult. - Vital Signs Vital signs: Intake and Output 06/28/17 06/28/17 06/28/17 06:59 14:59 22:59 Other: Weight 62.596 kg - OBG Physical Exam Breast: both: normal (no masses) Abdomen: bowel sounds normal, no diffuse tenderness, no bruit present, no guarding noted, no hepatomegaly, no splenomegaly, no mass Vulva: both: normal Vagina: normal moisture, no discharge Cervix: no lesion, no discharge Uterus: normal size, normal contour Adnexa: both: normal Anus/Rectum: normal perianal skin, no rectal mass, no hemorrhoids, heme negative
[~2017-06-29 10:44] MED LIST: DEXAMETHASONE SOD PHOSPHATE 10 MG/ML 1 ML VIAL IV ONE; LIDOCAINE 1% 20 ML VIAL (10MG/ML) FOR IV START INTRADERMA PRN; MIDAZOLAM 2 MG/2 ML VIAL IV PRN; Pre Op ABX Message 1 EACH MISC MISCELLANE ONE; SCOPOLAMINE 1.5MG/72HR PATCH TRANSDERM ONE
[2017-06-29 11:15] VITALS: TEMP 98.6
[2017-06-29] MEDS: LACTATED RINGERS 1,000 ML IV SCH ×2 (11:17→12:07)
[2017-06-29] MEDS ORDERED: ONDANSETRON 4 MG/2 ML VIAL IVP ONE ×2 (11:49→13:10)
[2017-06-29] MEDS ORDERED: LACTATED RINGERS 1,000 ML IV ONE (12:10)
[2017-06-29] MEDS ORDERED: KETOROLAC 30 MG/ML 1 ML VIAL ONE (12:10)
[2017-06-29] MEDS ORDERED: MIDAZOLAM 2 MG/2 ML VIAL ONE (12:10)
[2017-06-29] MEDS ORDERED: PROPOFOL 10 MG/ML 20 ML VIAL IV ONE (12:10)
[2017-06-29] MEDS ORDERED: MORPHINE SULFATE 10 MG/ML SYRINGE ONE (12:10)
[2017-06-29] MEDS ORDERED: LIDOCAINE 1% INJ 10MG/ML (20 ML MDV) ONE (12:10)
[2017-06-29] MEDS ORDERED: fentaNYL (PF) 50 MCG/ML 2 ML AMP ONE (12:10)
--- NOTE | 2017-06-29 12:40 | P.OP ---
Date of Procedure: 06/29/17 Preoperative Diagnosis: Menorrhagia Postoperative Diagnosis: Same Procedure(s) Performed: D&C with hysteroscopy and NovaSure Anesthesia: CAREN Surgeon: John Lyons Estimated Blood Loss (ml): 5 IV fluids (ml): 100 Urine output (ml): 30 Pathology: none sent (Uterine curettings) Condition: stable Disposition: same day Operative Findings: Pathology pending Description of Procedure: Height was taken to the operating suite where a general anesthetic was found be adequate. She was prepped and draped in the normal sterile fashion and placed in dorsal lithotomy position. Initially a weighted speculum was inserted into the vagina and anterior lip of cervix was identified and grasped with the Allis clamp. Cervix was then dilated and sounded to 9 cm. Camera was then inserted with minimal visualization due to blood and debris. Camera was removed and sharp curettings of endometrium were obtained. This tissue was collected and placed on Telfa sent to pathology. NovaSure system was then inserted with a length of 4 and a width of 3 it was tested and enabled and burn for 1 minute and 22 seconds. At the conclusion of the burn it was removed and camera was reinserted with good burn noted. All instruments were then removed. Sponge, lap, needle counts were all correct 2. Patient was then taken to the recovery room in stable and satisfactory condition and will be discharged home when stable. Plan - Discharge Summary New Discharge Prescriptions: New Ibuprofen [Motrin] 600 mg PO Q6HR PRN #30 tab PRN Reason: Pain No Action Ibuprofen [Motrin Ib] 200 mg PO Q4H PRN PRN Reason: Pain Discharge Medication List Ibuprofen [Motrin Ib] 200 mg PO Q4H PRN 04/24/17 [History] Ibuprofen [Motrin] 600 mg PO Q6HR PRN #30 tab 06/29/17 [Rx] Follow up Appointment(s)/Referral(s): John Lyons DO [Doctor of Osteopathic Medicine] - 1 Week Activity/Diet/Wound Care/Special Instructions: No heavy lifting, limit stairs and driving, and pelvic rest. If any high temperatures, heavy bleeding, or severe pain call my office
[2017-06-29] MEDS ORDERED: LABETALOL 5 MG/ML VIAL MDV IVP ONE ×2 (13:00→14:24)
[2017-06-29] MEDS ORDERED: MORPHINE SULFATE 4 MG/ML SYRINGE IVP ONE ×2 (13:08→13:27)
[2017-06-29] MEDS ORDERED: LABETALOL 5 MG/ML VIAL MDV IV ONE (14:07)
[2017-06-29 14:09] VITALS: RESP 18
[2017-06-29] MEDS ORDERED: MORPHINE SULFATE 10 MG/ML SYRINGE IV ONE (14:45)
[2017-06-29 14:58] VITALS: BP 171/124; PULSE 104
== END 2017-06-29 15:10 | disposition other institution (70) ==
LOC: OR 10:44
PROVIDERS: ATTEND Obstetrics & Gynecology
DX: N92.0 Excessive and frequent menstruation with regular cycle (principal); F17.210 Nicotine dependence, cigarettes, uncomplicated; R00.0 Tachycardia, unspecified
CPT/HCPCS: 93005; 81025; 88305; 58563; J2250; J2270 ×2; J1100; J2405; J2001; J3010; J1885; J2704

== ENCOUNTER 2017-06-29 15:30 | Emergency (ER) | payer OTHER ==
[2017-06-29 15:36] VITALS: RESP 16; TEMP 98
[2017-06-29] MEDS ORDERED: MORPHINE SULFATE 4 MG/ML SYRINGE IVP STA (16:05)
--- NOTE | 2017-06-29 16:08 | ED ---
General Adult HPI - General Chief complaint: Recheck/Abnormal Lab/Rx Stated complaint: High Blood Pressure Time Seen by Provider: 06/29/17 15:38 Source: patient, RN/MD, RN notes reviewed, old records reviewed Mode of arrival: wheelchair Limitations: no limitations - History of Present Illness Initial comments: This is a 42-year-old female the ER for evaluation. Patient sent in the ER for evaluation of postop elevated blood pressure. Patient has no symptoms no complaints. Patient states related to be discharged home with sent ER for evaluation regarding a little elevated blood pressure. She states she has history of elevated blood pressure and currently denies any complaints. - Related Data Home Medications Medication Instructions Recorded Confirmed Ibuprofen [Motrin Ib] 200 mg PO Q4H PRN 04/24/17 06/29/17 Previous Rx's Medication Instructions Recorded Ibuprofen [Motrin] 600 mg PO Q6HR PRN #30 tab 06/29/17 Allergies Allergy/AdvReac Type Severity Reaction Status Date / Time No Known Allergies Allergy Verified 06/29/17 16:05 Review of Systems ROS Statement: Those systems with pertinent positive or pertinent negative responses have been documented in the HPI. ROS Other: All systems not noted in ROS Statement are negative. Past Medical History Past Medical History: GERD/Reflux Additional Past Medical History / Comment(s): heavy and lengthy menstrual cycles ,hospital stay Mar 2017 for elevated b/p and davina feet and leg edema-currently no tx-monitoring b/p at home,Teeth removed in October 2016, Continues to have gum pain intermittently,vericose veins,constipation History of Any Multi-Drug Resistant Organisms: None Reported Past Surgical History: Section Additional Past Surgical History / Comment(s): HEMROIDECTOMY,neck fusion, D&C and ablation 07/13 Past Anesthesia/Blood Transfusion Reactions: No Reported Reaction Past Psychological History: No Psychological Hx Reported Smoking Status: Current every day smoker Past Alcohol Use History: None Reported Past Drug Use History: None Reported - Past Family History Mother Family Medical History: No Reported History General Exam Limitations: no limitations General appearance: alert, in no apparent distress Head exam: Present: atraumatic, normocephalic, normal inspection Eye exam: Present: normal appearance, PERRL, EOMI. Absent: scleral icterus, conjunctival injection, periorbital swelling ENT exam: Present: normal exam, mucous membranes moist Neck exam: Present: normal inspection. Absent: tenderness, meningismus, lymphadenopathy Respiratory exam: Present: normal lung sounds bilaterally. Absent: respiratory distress, wheezes, rales, rhonchi, stridor Cardiovascular Exam: Present: regular rate, normal rhythm, normal heart sounds. Absent: systolic murmur, diastolic murmur, rubs, gallop, clicks GI/Abdominal exam: Present: soft, normal bowel sounds. Absent: distended, tenderness, guarding, rebound, rigid Extremities exam: Present: normal inspection, full ROM, normal capillary refill. Absent: tenderness, pedal edema, joint swelling, calf tenderness Back exam: Present: normal inspection Neurological exam: Present: alert, oriented X3, CN II-XII intact Psychiatric exam: Present: normal affect, normal mood Skin exam: Present: warm, dry, intact, normal color. Absent: rash Course Vital Signs 06/29/17 15:32 Temperature 98.0 F Pulse Rate 98 Respiratory 16 Rate Blood Pressure 157/103 O2 Sat by Pulse 96 Oximetry - Reevaluation(s) Reevaluation #1: 06/29/17 16:07 Blood pressure heart rate improved Medical Decision Making - Medical Decision Making 42 female the ER for evaluation, presenting with elevated blood pressures status post surgical D&C, patient has high blood pressure prior, will advise patient to take blood pressure medication as directed. Patient's blood pressures improved here in ER a symptomatic and can be discharged home Disposition Clinical Impression: Hypertension, Postoperative pain Disposition: HOME SELF-CARE Condition: Good Instructions: Hypertension (ED) Is patient prescribed a controlled substance at d/c from ED?: No Referrals: None,Stated [Primary Care Provider] - 1-2 days
[2017-06-29 16:28] VITALS: BP 160/100; PULSE 110
== END 2017-06-29 16:27 | disposition home or self-care (01) ==
LOC: EC 15:30
DX: I10 Essential (primary) hypertension (principal); G89.18 Other acute postprocedural pain; F17.200 Nicotine dependence, unspecified, uncomplicated; Z98.890 Other specified postprocedural states
CPT/HCPCS: 99283; 96374; J2270

== ENCOUNTER → 2017-08-13 | Outpatient (CLI) | payer OTHER ==
[2017-08-13 10:48] LABS: HCT 39.3 % (34.0-46.0); HGB 12.3 gm/dL (11.4-16.0); Hypochromasia Marked; MCH 25.8 pg (25.0-35.0); MCHC 31.4 g/dL (31.0-37.0); MCV 82.1 fL (80.0-100.0); Mean Platelet Volume 6.5; Platelet Count 569 k/uL (150-450); Poikilocytosis Slight; RBC 4.79 m/uL (3.80-5.40); RDW 15.7 % (11.5-15.5)
[2017-08-13 11:03] LABS: Anion Gap 12 mmol/L; Blood Urea Nitrogen 14 mg/dL (7-17); Calcium 9.7 mg/dL (8.4-10.2); Carbon Dioxide 26 mmol/L (22-30); Chloride 101 mmol/L (98-107); Glucose 99 mg/dL (74-99); Potassium 5.5 mmol/L (3.5-5.1); Sodium 139 mmol/L (137-145)
== END | disposition home or self-care (01) ==
LOC: LABWHC1 10:15
PROVIDERS: ATTEND Internal Medicine Interventional Cardiology
DX: D64.9 Anemia, unspecified (principal); R00.2 Palpitations
CPT/HCPCS: 36415; 80048; 84439; 84443; 85027

== ENCOUNTER → 2020-06-07 | Outpatient (CLI) | payer OTHER ==
--- NOTE | 2020-06-07 21:08 | XR ---
EXAMINATION TYPE: XR ankle limited 2 views LT, XR foot limited 2 views LT DATE OF EXAM: 06/07/2020 COMPARISON: NONE HISTORY: 45-year-old female R52, pain and swelling. FINDINGS: Ankle: Ankle mortise is congruent. Subtalar joint align. Smooth delineation to the Achilles tendon. No sublu xation or dislocation. There is focal bony irregularity seen along the lateral hindfoot on the AP vie w. Foot: Again, there is bony irregularity along the distal lateral aspect of the calcaneus that could represe nt a minimally displaced fracture fragment. Correlation for focal pain at this level. CT can further evaluate. No additional acute fracture, subluxation, or dislocation is seen. IMPRESSION: 1. Ankle: No acute osseous abnormality seen. 2. Foot: Bony irregularity and lucency involving the distal lateral aspect of the calcaneus. Correlat e for any focal pain here as a minimally displaced fracture is suspected. Consider CT to further eval uate.
== END | disposition home or self-care (01) ==
LOC: RADXRMAIN 12:44
PROVIDERS: ATTEND Internal Medicine
DX: R93.7 Abnormal findings on diagnostic imaging of other parts of musculoskeletal system (principal); M79.672 Pain in left foot; M25.572 Pain in left ankle and joints of left foot; M79.89 Other specified soft tissue disorders; M25.472 Effusion, left ankle

== ENCOUNTER 2021-08-12 14:46 | Emergency (ER) | payer OTHER ==
[2021-08-12 15:28] LABS: Appearance,Urine Cloudy (Clear); Bacteria,Urine Occasional /hpf; Bilirubin,Urine 1+ (Negative); Blood,Urine Negative (Negative); Color,Urine Dark Yellow; Glucose,Urine (UA) Negative (Negative); Ketones,Urine Negative (Negative); Leukocyte Esterase,Urine Negative (Negative); Mucus,Urine Many /hpf; Nitrite,Urine Positive (Negative); Protein,Urine Trace (Negative); Specific Gravity,Urine 1.011 (1.001-1.035); Squamous Epithelial Cell,Urine 10 /hpf (0-4); WBC,Urine 4 /hpf (0-5)
[2021-08-12 17:22] LABS: Basophils # (A) 0.1 k/uL (0-0.2); Basophils % (A) 1 %; Eosinophils % (A) 0 %; HCT 33.7 % (34.0-46.0); HGB 11.1 gm/dL (11.4-16.0); Lymphocytes # (A) 1.4 k/uL (1.0-4.8); Lymphocytes % (A) 17 %; MCH 35.5 pg (25.0-35.0); MCV 107.7 fL (80.0-100.0); Macrocytosis Moderate; Mean Platelet Volume 9.4; Monocytes # (A) 0.6 k/uL (0-1.0); Monocytes % (A) 7 %; Neutrophils # (A) 6.1 k/uL (1.3-7.7); Neutrophils % (A) 74 %; RBC 3.13 m/uL (3.80-5.40); RDW 13.2 % (11.5-15.5); WBC 8.3 k/uL (3.8-10.6)
[2021-08-12 17:29] LABS: Chloride 101 mmol/L (98-107)
[2021-08-12 17:30] LABS: ALT 52 U/L (4-34); AST 384 U/L (14-36); African American GFR (CKD) >90 (>60 ml/min/1.73 sqM); Albumin 3.2 g/dL (3.5-5.0); Alkaline Phosphatase 418 U/L (38-126); Anion Gap 13 mmol/L; Blood Urea Nitrogen 7 mg/dL (7-17); Calcium 7.5 mg/dL (8.4-10.2); Carbon Dioxide 26 mmol/L (22-30); Glucose 74 mg/dL (74-99); Non-African American GFR(CKD) >90 (>60 ml/min/1.73 sqM); Potassium 3.2 mmol/L (3.5-5.1); Sodium 140 mmol/L (137-145); Total Bilirubin 4.5 mg/dL (0.2-1.3)
[2021-08-12 17:36] LABS: Platelet Count 72 k/uL (150-450)
--- NOTE | 2021-08-12 17:47 | ED ---
General Adult HPI - General Source: patient Mode of arrival: ambulatory Limitations: no limitations <Patience Cordero - Last Filed: 08/12/21 18:58> <Hoang Sosa - Last Filed: 08/12/21 20:47> - General Chief complaint: Abdominal Pain Stated complaint: Abdominal Distension/Sent by [facility] Time Seen by Provider: 08/12/21 15:59 - History of Present Illness Initial comments: Patient is a 46-year-old female who presents to the emergency department with a chief complaint of abdominal distention. Patient states symptoms started 4 days ago and have been progressively worsening. Patient does not have abdominal pain. Patient has no other concerns at this time including fever, chills, shortness of breath, chest pain, nausea, vomiting, and burning with urination. Patient states she is having normal bowel movements, last one was today. Patient denies history of abdominal surgery or other abdominal issues. She does admit to drinking 2-3 shots of liquor a day. (Patience Cordero) - Related Data Home Medications Medication Instructions Recorded Confirmed No Known Home Medications 08/12/21 08/12/21 Allergies Allergy/AdvReac Type Severity Reaction Status Date / Time No Known Allergies Allergy Verified 08/12/21 17:09 Review of Systems ROS Other: All systems not noted in ROS Statement are negative. <Patience Cordero - Last Filed: 08/12/21 18:58> ROS Other: All systems not noted in ROS Statement are negative. <Hoang Sosa - Last Filed: 08/12/21 20:47> ROS Statement: Those systems with pertinent positive or pertinent negative responses have been documented in the HPI. Past Medical History Past Medical History: GERD/Reflux Additional Past Medical History / Comment(s): heavy and lengthy menstrual cyc les,hospital stay Mar 2017 for elevated b/p and davina feet and leg edema-currently no tx-monitoring b/p at home,Teeth removed in October 2016, Continues to have gum pain intermittently,vericose veins,constipation History of Any Multi-Drug Resistant Organisms: None Reported Past Surgical History: Section Additional Past Surgical History / Comment(s): HEMROIDECTOMY,neck fusion, D&C and ablation 07/13 Past Anesthesia/Blood Transfusion Reactions: No Reported Reaction Past Psychological History: No Psychological Hx Reported Smoking Status: Current every day smoker Past Alcohol Use History: Daily Past Drug Use History: None Reported - Past Family History Mother Family Medical History: No Reported History <Patience Cordero - Last Filed: 08/12/21 18:58> General Exam Limitations: no limitations General appearance: alert, in no apparent distress Head exam: Present: atraumatic, normocephalic, normal inspection Eye exam: Present: PERRL, EOMI, scleral icterus Respiratory exam: Present: normal lung sounds bilaterally. Absent: respiratory distress, wheezes, rales, rhonchi, stridor Cardiovascular Exam: Present: regular rate, normal rhythm, normal heart sounds. Absent: systolic murmur, diastolic murmur, rubs, gallop, clicks GI/Abdominal exam: Present: soft, distended, normal bowel sounds. Absent: tenderness, guarding, rebound, rigid Neurological exam: Present: alert, oriented X3, CN II-XII intact Psychiatric exam: Present: normal affect, normal mood Skin exam: Present: warm, dry, intact, normal color. Absent: rash <Patience Cordero - Last Filed: 08/12/21 18:58> Course Vital Signs 08/12/21 08/12/21 15:01 18:50 Temperature 97.8 F 98.7 F Pulse Rate 104 H 110 H Respiratory 15 18 Rate Blood Pressure 132/87 149/89 O2 Sat by Pulse 99 100 Oximetry Medical Decision Making - Lab Data Result diagrams: 08/12/21 16:37 08/12/21 16:37 <Edil Corderona - Last Filed: 08/12/21 18:58> - Lab Data Result diagrams: 08/12/21 16:37 08/12/21 16:37 <Hoang Sosa - Last Filed: 08/12/21 20:47> - Medical Decision Making This is a 46-year-old dairy alcohol user who presents for evaluation of worsening abdominal distention. Thorough history and examination were performed. Patient is well-appearing and in no apparent distress. Vitals stable, no fever. Patient does have moderate scleral icterus. She does not appear to be jaundiced. No abdominal pain. The abdomen is markedly distended with no tenderness to palpation. Upon questioning patient denies history of hepatitis or other genetic liver disease. Denies family history of genetic liver conditions. Denies IV drug use and concern for STI. Denies light colored stools. With patient's abdominal distention and scleral icterus with heavy alcohol use there is concern for liver/gallbladder pathology. I will obtain laboratory studies as well as ultrasound. Laboratory studies significant for elevated liver function enzymes and bilirubin. AST at 384, ALT at 52, alk phos at 418, bilirubin at 4.5. Urinalysis reveals 1+ bilirubin. Hepatitis panel pending. Ultrasound shows hepatocellular disease mostcommonly related to hepatic steatosis, small ascites, and thickening of the gallbladder wall with trace pericholecystic fluid and suggestion of biliary sludge.. I will obtain CT of the abdomen and pelvis with contrast to further delineate abnormalities on ultrasound however ultimately patient needs ERCP. Unfortunately we do not have GI services currently. Patient will need to be transferred. Case discussed with Dr. Zhu at [facility] who is willing to accept patient. Results discussed with patient. Patient agreeable to transfer. She was transferred in stable condition. Dr. Sosa is my attending. (Patience Cordero) Over concern for possible infectious etiology and lactic acidosis, patient was given a dose of Zosyn in addition to IV fluids. CT imaging revealed possible colitis, ascites, hepatic C ptosis, possible cholecystitis based on hyperemic gallbladder wall, as well as a fibroid. Patient still requires suspected HIDA scan. We do not have GI here. Plan for transfer does not change. Patient was updated results by mid-level provider. (Hoang Sosa) - Lab Data Lab Results 08/12/21 08/12/21 08/12/21 Range/Units 15:10 15:10 16:37 WBC 8.3 (3.8-10.6) k/uL RBC 3.13 L (3.80-5.40) m/uL Hgb 11.1 L (11.4-16.0) gm/dL Hct 33.7 L (34.0-46.0) % MCV 107.7 H (80.0-100.0) fL MCH 35.5 H (25.0-35.0) pg MCHC 33.0 (31.0-37.0) g/dL RDW 13.2 (11.5-15.5) % Plt Count 72 L (150-450) k/uL MPV 9.4 Neutrophils % 74 % Lymphocytes % 17 % Monocytes % 7 % Eosinophils % 0 % Basophils % 1 % Neutrophils # 6.1 (1.3-7.7) k/uL Lymphocytes # 1.4 (1.0-4.8) k/uL Monocytes # 0.6 (0-1.0) k/uL Eosinophils # 0.0 (0-0.7) k/uL Basophils # 0.1 (0-0.2) k/uL Macrocytosis Moderate Sodium (137-145) mmol/L Potassium (3.5-5.1) mmol/L Chloride (98-107) mmol/L Carbon Dioxide (22-30) mmol/L Anion Gap mmol/L BUN (7-17) mg/dL Creatinine (0.52-1.04) mg/dL Est GFR (CKD-EPI)AfAm (>60 ml/min/1.73 sqM) Est GFR (CKD-EPI)NonAf (>60 ml/min/1.73 sqM) Glucose (74-99) mg/dL Plasma Lactic Acid Pedro (0.7-2.0) mmol/L Calcium (8.4-10.2) mg/dL Total Bilirubin (0.2-1.3) mg/dL AST (14-36) U/L ALT (4-34) U/L Alkaline Phosphatase (38-126) U/L Total Protein (6.3-8.2) g/dL Albumin (3.5-5.0) g/dL Amylase (30-110) U/L Lipase (23-300) U/L Urine Color Dark Yellow Urine Appearance Cloudy H (Clear) Urine pH 6.0 (5.0-8.0) Ur Specific Rumsey 1.011 (1.001-1.035) Urine Protein Trace H (Negative) Urine Glucose (UA) Negative (Negative) Urine Ketones Negative (Negative) Urine Blood Negative (Negative) Urine Nitrite Positive H (Negative) Urine Bilirubin 1+ H (Negative) Urine Urobilinogen 4.0 (<2.0) mg/dL Ur Leukocyte Esterase Negative (Negative) Urine WBC 4 (0-5) /hpf Ur Squamous Epith Cells 10 H (0-4) /hpf Urine Bacteria Occasional H (None) /hpf Urine Mucus Many H (None) /hpf Urine HCG, Qual Not Detected (Not Detectd) 08/12/21 08/12/2122 Range/Units 16:37 18:44 18:44 WBC (3.8-10.6) k/uL RBC (3.80-5.40) m/uL Hgb (11.4-16.0) gm/dL Hct (34.0-46.0) % MCV (80.0-100.0) fL MCH (25.0-35.0) pg MCHC (31.0-37.0) g/dL RDW (11.5-15.5) % Plt Count (150-450) k/uL MPV Neutrophils % % Lymphocytes % % Monocytes % % Eosinophils % % Basophils % % Neutrophils # (1.3-7.7) k/uL Lymphocytes # (1.0-4.8) k/uL Monocytes # (0-1.0) k/uL Eosinophils # (0-0.7) k/uL Basophils # (0-0.2) k/uL Macrocytosis Sodium 140 (137-145) mmol/L Potassium 3.2 L (3.5-5.1) mmol/L Chloride 101 (98-107) mmol/L Carbon Dioxide 26 (22-30) mmol/L Anion Gap 13 mmol/L BUN 7 (7-17) mg/dL Creatinine 0.49 L (0.52-1.04) mg/dL Est GFR (CKD-EPI)AfAm >90 (>60 ml/min/1.73 sqM) Est GFR (CKD-EPI)NonAf >90 (>60 ml/min/1.73 sqM) Glucose 74 (74-99) mg/dL Plasma Lactic Acid Pedro 3.9 H* (0.7-2.0) mmol/L Calcium 7.5 L (8.4-10.2) mg/dL Total Bilirubin 4.5 H (0.2-1.3) mg/dL AST 384 H (14-36) U/L ALT 52 H (4-34) U/L Alkaline Phosphatase 418 H (38-126) U/L Total Protein 7.0 (6.3-8.2) g/dL Albumin 3.2 L (3.5-5.0) g/dL Amylase 87 (30-110) U/L Lipase 169 (23-300) U/L Urine Color Urine Appearance (Clear) Urine pH (5.0-8.0) Ur Specific Rumsey (1.001-1.035) Urine Protein (Negative) Urine Glucose (UA) (Negative) Urine Ketones (Negative) Urine Blood (Negative) Urine Nitrite (Negative) Urine Bilirubin (Negative) Urine Urobilinogen (<2.0) mg/dL Ur Leukocyte Esterase (Negative) Urine WBC (0-5) /hpf Ur Squamous Epith Cells (0-4) /hpf Urine Bacteria (None) /hpf Urine Mucus (None) /hpf Urine HCG, Qual (Not Detectd) Disposition - Out of Hospital Transfer - Req. Specs Out of Hospital Transfer - Requested Specifics: Other Emergency Center ([facility]) <Patience Cordero - Last Filed: 08/12/21 18:58> <Hoang Sosa - Last Filed: 08/12/21 20:47> Clinical Impression: Abdominal distension, Scleral icterus, Ascites, Heavy alcohol use, Biliary sludge, Hyperbilirubinemia, Elevated liver enzymes Disposition: OTHER INSTITUTION NOT DEFINED Condition: Fair Referrals: Ephraim Dee MD [Primary Care Provider] - 1-2 days
[2021-08-12] MEDS ORDERED: POTASSIUM CHLORIDE ER 20 MEQ TAB.ER PO STA (17:58)
--- NOTE | 2021-08-12 18:17 | US ---
EXAMINATION TYPE: US abdomen limited DATE OF EXAM: 08/12/2021 COMPARISON: NONE CLINICAL HISTORY: abd distention, scleral icterus, daily alc use. abd distention limited exam due to bowel gas and ascites. EXAM MEASUREMENTS: Liver Length: 19.8 cm Gallbladder Wall: .5 cm thickened. CBD: .6 cm Right Kidney: 10.1 x 3.7 x 4.5 cm Pancreas: Obscured by bowel gas Liver: Enlarged increased attenuation Gallbladder: Dilated 10.8 cm with pericholecystic fluid. Layering biliary sludge suggested. Evidence for sonographic Trinh's sign: No CBD: upper limits Right Kidney: No hydronephrosis or masses seen IMPRESSION: 1. Hepatocellular disease most commonly relating to hepatic steatosis. 2. Small ascites. 3. Thickening of the gallbladder wall with trace pericholecystic fluid. There is no sonographic Murp hy's sign which makes this the equivocal for acute cholecystitis. Consider HIDA scan if there is yennifer ins concern for acute cholecystitis. Biliary sludge suggested.
[2021-08-12 18:50] VITALS: RESP 18; TEMP 98.7
[2021-08-12 18:57] LABS: Amylase 87 U/L (30-110); Lipase 169 U/L (23-300)
[2021-08-12] MEDS ORDERED: PIPERACILLIN-TAZOBACTAM 3.375 GM in SODIUM CHLORIDE 0.9% 100 ML IVPB STA (19:19)
--- NOTE | 2021-08-12 19:52 | CT ---
EXAMINATION TYPE: CT abdomen pelvis w con CT DLP: 786.4 mGycm, Automated exposure control for dose reduction was used. DATE OF EXAM: 08/12/2021 7:05 PM COMPARISON: None CLINICAL INDICATION:Female, 46 years old with history of abnormal US, elevated bilirubin and LFTs; ab normal US, elevated bilirubin and LFTs TECHNIQUE: Standard CT of the abdomen and pelvis following the administration of 100 cc of Isovue 3 00 IV contrast material. Coronal and sagittal reformats were performed. FINDINGS: LOWER CHEST: Unremarkable ABDOMEN LIVER: Diffusely hypoattenuating parenchyma with a slightly heterogenous enhancement pattern. GALLBLADDER AND BILE DUCTS: There is a hyperemic gallbladder wall. PANCREAS: Unremarkable. SPLEEN: Unremarkable. ADRENAL GLANDS: Unremarkable. KIDNEYS AND URETERS: No evidence of hydronephrosis or renal calculus. The ureters are unremarkable. Bilateral renal lesions some of which appear as simple cysts and others are indeterminate including l eft medial inferior pole lesion measuring 57 Hounsfield units and 9 mm. Indeterminate left upper pole lateral lesion measuring 11 mm and 60 Hounsfield units. No hydronephrosis or obstructive calculi. PELVIS BLADDER: Unremarkable REPRODUCTIVE: Bilateral tubal ligation clips. Lobular contour to the anterior lower uterine segment m easuring up to 3.7 cm suggestive of fibroid. ABDOMEN & PELVIS STOMACH AND BOWEL: There is circumferential wall thickening of the cecum extending to the transverse colon. This also apparent thickening of the jejunum in the left upper quadrant. The appendix is scotty l. PERITONEUM: No evidence of pneumoperitoneum. There is small amount of ascites scattered throughout th e abdomen. VASCULATURE: No evidence of aortic aneurysm. MUSCULOSKELETAL: No acute osseous abnormalities. LYMPH NODES: No gross evidence for lymphadenopathy. SOFT TISSUE/ABDOMINAL WALL: Unremarkable IMPRESSION: 1. Findings suggestive of cecum/ascending colon and hepatic flexure colitis with enteritis of the jej unum. 2. Marked Hepatic steatosis. 3. Small to moderate free fluid ascites. 4. Indeterminate lesions within the kidneys bilaterally be further evaluated with CT/MRI with IV cont rast renal mass protocol if clinically warranted. 5. Hyperemic gallbladder wall correlate for cholecystitis. 6. Subserosal exophytic fibroid up to 3.7 cm anteriorly.
[2021-08-12] MEDS ORDERED: SODIUM CHLORIDE 0.9% 1,000 ML IV STA ×2 (20:45)
[2021-08-12 20:54] VITALS: BP 126/68; PULSE 81
[2021-08-15 13:00] LABS: Hepatitis A Antibody IgM Nonreactive (Nonreactive); Hepatitis B Core IgM Nonreactive (Nonreactive); Hepatitis C IgG Antibody Nonreactive (Nonreactive)
[2021-08-15 15:56] LABS: Hepatitis B Surface Antigen Nonreactive (Nonreactive)
== END 2021-08-12 20:54 | disposition other institution (70) ==
LOC: EC 14:46
DX: K83.9 Disease of biliary tract, unspecified (principal); E80.6 Other disorders of bilirubin metabolism; F10.99 Alcohol use, unspecified with unspecified alcohol-induced disorder; R17 Unspecified jaundice; R18.8 Other ascites; R14.0 Abdominal distension (gaseous); K21.9 Gastro-esophageal reflux disease without esophagitis; F17.200 Nicotine dependence, unspecified, uncomplicated; Y90.9 Presence of alcohol in blood, level not specified
CPT/HCPCS: 36415; 80053; 80074; 82150; 83605; 83690; 85025; 81001; 81025; 87040; 76705; 74177; 99285; 96365; J2543; Q9967

== ENCOUNTER → 2021-09-20 | Outpatient (CLI) | payer OTHER ==
[2021-09-20 19:20] LABS: African American GFR (CKD) 103.9 (60.0-200.0); Albumin 2.8 g/dL (3.8-4.9); Albumin/Globulin Ratio 0.65 (1.60-3.17); BUN/Creat Ratio 20.75 Ratio (12.00-20.00); Bilirubin, Conjugated 2.08 mg/dL (0.20-0.40); Bilirubin,Unconjugated 1.12 mg/dL (0.20-1.00); Blood Urea Nitrogen 16.6 mg/dL (9.0-27.0); Calcium 8.4 mg/dL (8.7-10.3); Globulin 4.3 g/dL (1.6-3.3); Non-African American GFR(CKD) 89.7 (60.0-200.0); Potassium 4.4 mmol/L (3.5-5.5); Total Bilirubin 3.2 mg/dL (0.30-1.20); Total Protein 7.1 g/dL (6.2-8.2)
[2021-09-21 12:39] LABS: INR 1.22 (0.90-1.11); Prothrombin Time 13.3 sec (9.9-11.9)
== END | disposition home or self-care (01) ==
LOC: LABWHC1 12:51
PROVIDERS: ATTEND Internal Medicine
DX: K70.31 Alcoholic cirrhosis of liver with ascites (principal)
CPT/HCPCS: 36415; 80048; 80076; 85610

== ENCOUNTER → 2021-10-10 | Outpatient (CLI) | payer OTHER ==
[2021-10-10 23:26] LABS: INR 1.15 (0.90-1.11); Prothrombin Time 12.9 sec (9.9-11.9)
[2021-10-11 01:05] LABS: African American GFR (CKD) 92.4 (60.0-200.0); Albumin 3.6 g/dL (3.8-4.9); Anion Gap 8.7 mmol/L (10.00-18.00); BUN/Creat Ratio 17.91 Ratio (12.00-20.00); Bilirubin, Conjugated 0.88 mg/dL (0.20-0.40); Bilirubin,Unconjugated 0.62 mg/dL (0.20-1.00); Blood Urea Nitrogen 15.8 mg/dL (9.0-27.0); Calcium 9.2 mg/dL (8.7-10.3); Carbon Dioxide 25.3 mmol/L (20.0-27.5); Globulin 3.6 g/dL (1.6-3.3); Non-African American GFR(CKD) 79.7 (60.0-200.0); Total Bilirubin 1.5 mg/dL (0.30-1.20); Total Protein 7.2 g/dL (6.2-8.2)
== END | disposition home or self-care (01) ==
LOC: LABWHC1 15:52
PROVIDERS: ATTEND Internal Medicine
DX: K70.31 Alcoholic cirrhosis of liver with ascites (principal)
CPT/HCPCS: 36415; 80048; 80076; 85610

== ENCOUNTER → 2022-01-02 | Outpatient (CLI) | payer OTHER ==
[2022-01-02 14:28] LABS: INR 1.1 (<1.2); Partial Thromboplastin Time 27.1 sec (22.0-30.0); Prothrombin Time 11.5 sec (9.0-12.0)
[2022-01-02 18:19] LABS: Albumin 4.2 g/dL (3.8-4.9); Albumin/Globulin Ratio 1.32 (1.60-3.17); Anion Gap 8.4 mmol/L (10.00-18.00); BUN/Creat Ratio 17.27 Ratio (12.00-20.00); Blood Urea Nitrogen 12.8 mg/dL (9.0-27.0); Calcium 9.1 mg/dL (8.7-10.3); Carbon Dioxide 28.5 mmol/L (20.0-27.5); Globulin 3.2 g/dL (1.6-3.3); Non-African American GFR(CKD) 98.4 (60.0-200.0); Potassium 4.1 mmol/L (3.5-5.5); Total Bilirubin 0.5 mg/dL (0.30-1.20); Total Protein 7.4 g/dL (6.2-8.2)
== END | disposition home or self-care (01) ==
LOC: LABWHC1 13:05
PROVIDERS: ATTEND Internal Medicine
DX: K74.60 Unspecified cirrhosis of liver (principal); R18.8 Other ascites
CPT/HCPCS: 36415; 80053; 82105; 85610; 85730

== ENCOUNTER 2022-01-16 11:22 | Day surgery (SDC) | payer OTHER ==
[2022-01-05 10:25] VITALS: BMI 22.7
[~2022-01-16 11:22] MED LIST changes: -DEXAMETHASONE SOD PHOSPHATE 10 MG/ML 1 ML VIAL IV ONE; +DEXAMETHASONE SOD PHOSPHATE 4 MG/ML 1 ML VIAL IV ONE; +HYDROmorphone 0.5 MG/0.5 ML SYRINGE IVP PRN; +LACTATED RINGERS 1,000 ML IV SCH; +LIDOCAINE 1% (10MG/ML) FOR IV START INTRADERMA PRN; -LIDOCAINE 1% 20 ML VIAL (10MG/ML) FOR IV START INTRADERMA PRN; +ONDANSETRON 4 MG/2 ML VIAL IVP ONE; -SCOPOLAMINE 1.5MG/72HR PATCH TRANSDERM ONE
[2022-01-16] MEDS ORDERED: LACTATED RINGERS 1,000 ML IV ONE (11:48)
[2022-01-16 12:05] VITALS: RESP 16
[2022-01-16] MEDS ORDERED: ONDANSETRON 4 MG/2 ML VIAL IVP ONE (12:20)
[2022-01-16] MEDS ORDERED: DEXAMETHASONE SOD PHOSPHATE 4 MG/ML 1 ML VIAL IVP ONE (12:21)
[2022-01-16] MEDS ORDERED: MIDAZOLAM 2 MG/2 ML VIAL IVP ONE (12:25)
--- NOTE | 2022-01-16 13:29 | P.ANPRN ---
Procedure Note - Anesthesia - Nerve Block Performed Right Supraclavicular Single Time Out Performed: Yes Date of Procedure: 01/16/22 Procedure Start Time: Procedure Stop Time: Location of Patient: PreOp Indication: Requested by Surgeon Specifically requested for management of pain by DrPuja: Blossom Meredith Sedation Type: Sedate with meaningful contact maintained Preparation: Sterile Prep Position: Supine Needle Types: Pajunk Needle Gauge: 21 Ultrasound used to visualize needle placement: Yes Ultrasound used to observe medication spread: Yes Injectate: 0.5% Ropivacaine (see comment for volume) (25 ml +4 mg Dexamethason) Blood Aspirated: No Pain Paresthesia on Injection Noted: No Resistance on Injection: Normal Image Stored and Saved: Yes Events: Uneventful and Well Tolerated
[2022-01-16] MEDS ORDERED: fentaNYL (PF) 50 MCG/ML 2 ML AMP ONE (15:26)
[2022-01-16] MEDS ORDERED: DEXAMETHASONE SOD PHOSPHATE 4 MG/ML 1 ML VIAL ONE (15:26)
[2022-01-16] MEDS ORDERED: MIDAZOLAM 2 MG/2 ML VIAL ONE (15:26)
[2022-01-16] MEDS ORDERED: LIDOCAINE 2% INJ 20 MG/ML (2 ML VIAL) ONE (15:26)
[2022-01-16] MEDS ORDERED: ROPIVACAINE 5 MG/ML 30 ML VIAL ONE (15:26)
[2022-01-16] MEDS ORDERED: PROPOFOL 10 MG/ML 20 ML VIAL IV ONE (15:26)
[2022-01-16] MEDS ORDERED: LIDOCAINE 0.5% (PF) 5 MG/ML (50 ML SDV) SQ ONE (15:46)
[2022-01-16] MEDS ORDERED: BACITRACIN ZINC 500 UNIT/GM OINT 28.4 GM TUBE TOPICAL ONE (16:17)
[2022-01-16 16:33] VITALS: TEMP 97
[2022-01-16 17:49] VITALS: BP 120/80; PULSE 72
--- NOTE | 2022-01-17 17:24 | P.OP ---
Date of Procedure: 01/16/22 Preoperative Diagnosis: Right small finger dupuytren's contracture Postoperative Diagnosis: same Procedure(s) Performed: Right small finger dupuytren's excision Anesthesia: CAREN, regional Surgeon: Blossom Meredith Estimated Blood Loss (ml): 10 Condition: stable Disposition: PACU Indications for Procedure: Rocío has contracture of her small finger that is starting to interfere with her activities. We had a discussion about her treatment options and she would like to proceed with excision of the dupuytren's cord. Description of Procedure: Patient, operative extremity, and procedure were identified in the preop holding area. She was then brought back to the operating room. The block was incomplete so an ulnar nerve block was performed with a mix of 1% lidocaine plane and 0.5% marcaine. After a formal timeout was performed, the tourniquet was inflated. The palpable cord was a spiral cord resulting in a PIP contracture of 45 degrees. A angelita incision was made over the cord. Dissection was carried down to the cord itself along the proximal phalanx. The incision was extended proximally to the A1 jesenia to identify the neurovascular structures. The cord was released proximally and dissection was continued distally. After the initial release of the cord proximally, the PIP contracture was completely resolved with full extension of the joint. An attempt was made to dissect the remainer of the spiral cord distally but it was very difficult to distinguish diseased cord from the neurovascular bundle. Because the PIP contracture was already treated, the decision was made to truncate the cord proximal to the unidentified bundle rather than continue dissection and risk injuring the nerve and artery. The tourniquet was let down, hemostasis achieved, and the wound closed with 4.0 nylon suture. The wound was dressed with antibiotic ointment, adaptic, gauze, and a resting hand splint with the small and ring fingers in full extension. Patient was aroused by the anesthesia team and brought back to PACU in stable condition.
== END 2022-01-16 18:05 | disposition home or self-care (01) ==
LOC: OR 11:22
PROVIDERS: ATTEND Orthopaedic Surgery Hand Surgery
DX: M72.0 Palmar fascial fibromatosis [Dupuytren] (principal); G89.18 Other acute postprocedural pain; Z87.891 Personal history of nicotine dependence; Z79.899 Other long term (current) drug therapy; E07.9 Disorder of thyroid, unspecified; Z79.890 Hormone replacement therapy; Z98.890 Other specified postprocedural states; R63.5 Abnormal weight gain
CPT/HCPCS: 26045; 64415 ×2; 76942 ×2; 81025; J2250; J1100; J2405; J2001 ×2; J3010; J2795; J2704

== ENCOUNTER → 2023-03-01 | Outpatient (CLI) | payer OTHER ==
--- NOTE | 2023-03-01 17:21 | US ---
EXAMINATION TYPE: US abdomen complete DATE OF EXAM: 03/01/2023 COMPARISON: 08/12/2021 CLINICAL INDICATION: Female, 47 years old with history of R60.9 EDEMA SWELLING OF ABDOMEN; Hard lump epigastric area x few months; Hx alcoholic cirrhosis. TECHNIQUE: Multiple sonographic images of the abdomen are obtained. FINDINGS: EXAM MEASUREMENTS: Liver Length: 18.5 cm Gallbladder Wall: 0.2 cm CBD: 0.4 cm Spleen: 12.0 cm Right Kidney: 12.0 x 4.0 x 7.0 cm Left Kidney: 11.9 x 5.3 x 2.9 cm [employer]ER NOTES: Left liver lobe at patients lump AOC Pancreas: heterogenous Liver: left lobe extends to patient umbilicus; lobulated; attenuating Gallbladder: ? Hydropic Evidence for sonographic Trinh's sign: No CBD: wnl Spleen: Lobulated Right Kidney: wnl Left Kidney: Simple cyst noted Upper IVC: wnl Abd Aorta: wnl IMPRESSION: 1. Hepatomegaly. 2. Some ascites is present.
== END | disposition home or self-care (01) ==
LOC: RADUSWWP 09:59
PROVIDERS: ATTEND Student in an Organized Health Care Education/Training Program
DX: R16.0 Hepatomegaly, not elsewhere classified (principal); R18.8 Other ascites
CPT/HCPCS: 76700